=== PATIENT | male | born 1945 | race Caucasian/White ===

== ENCOUNTER 2019-09-21 07:46 | Outpatient (CLI) | payer MEDICARE, SELFPAY ==
--- NOTE | ~2019-09-21 | MR_ITS ---
EXAMINATION: MR MRCP wo/w con/w 3D wo ind DATE: 09/21/2019 09:38 INDICATION: Pancreatic pseudocyst. Patient reportedly with hospitalization for severe pancreatitis in February 2019 with pancreatic necrosis and pseudocyst formation demonstrated on follow-up studies which are not currently available for comparison TECHNIQUE: Magnetic resonance imaging (MRI) of the abdomen was performed without and with intravenous contrast. Sequences included coronal T2-weighted SS-FSE ARC, coronal T2-weighted FS SS-FSE, coronal T2-weighted 2D FS FIESTA, Water:Coronal LAVA-Flex, sagittal T2-weighted SS-FSE ARC, axial SSFSE ARC, axial 3D DualEcho, axial DWI B=600, axial T1-weighted LAVA, FAT:Coronal LAVA-Flex, and coronal in and opposed phase LAVA-Flex. Thick-slab T2-weighted FRFSE-XL images were obtained for magnetic resonance cholangiopancreatography (MRCP). Maximum intensity projection 3-D reconstructions of the volumetric data were created by the technologist. Postcontrast sequences included a time course of axial T1-weig hted LAVA, FAT:Coronal LAVA-Flex, coronal in and opposed phase LAVA-Flex, and Water:Coronal LAVA-Flex . COMPARISON: None. CONTRAST: Multihance, 20 cc FINDINGS: ABDOMEN MRI: The liver, spleen, gallbladder, and adrenal glands are normal. Cysts of the kidneys lydia ure up to 3.3 cm on the right. The pancreas demonstrates a markedly heterogeneous appearance througho ut the head, body, and much of the pancreatic tail. Only the tip of the tail of the pancreas has a no rmal appearance. There is a large, complex fluid collection surrounding the pancreas which is difficu lt to measure but is approximately 16.0 x 8.8 x 8.1 cm in size. The fluid demonstrates some internal loculations without focal enhancement. ABDOMEN MRCP: There is mass effect on the distal common bile duct by walled off necrosis of the pancr eas. The common bile duct measures 8 mm proximal to the area of mass effect and approximately 2 mm in the region abutting the walled off necrosis. The pancreatic duct is only seen in the uncinate proces s of the pancreas and is normal in appearance. The duct in the head, body, and tail of the pancreas i s not identified, likely disrupted. IMPRESSION: 1. 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 Very little residual normal appearing pancreatic tissue i dentified. Reviewed, dictated and finalized at location A. IMPRESSION: 1. 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 Very little r esidual normal appearing pancreatic tissue identified.
[2019-09-21 08:35] LABS: Estimated Glomerular Filt Rate > 60
== END 2019-09-21 07:47 | disposition home or self-care (01) ==
PROVIDERS: PCP Internal Medicine; Visit Provider Internal Medicine Gastroenterology
DX: K86.3 Pseudocyst of pancreas (principal)
CPT/HCPCS: 36415; 74183; 76376

== ENCOUNTER 2019-10-29 10:49 | Outpatient (CLI) | payer MEDICARE, SELFPAY ==
--- NOTE | ~2019-10-29 | CT_ITS ---
EXAMINATION: CT abdomen wo/w con EXAM DATE: 10/29/2019 11:41 INDICATION: Pancreatic pseudocyst. Patient reportedly with hospitalization for severe pancreatitis in February 2019 with pancreatic necrosis and pseudocyst formation demonstrated on follow-u p studies. TECHNIQUE: Spiral CT of the abdomen was performed without and then with intravenous injection of 100 mL Omnipaque 350. Axial, coronal and sagittal images were reviewed. The dose-length product (DLP) for this examination was 3102.98 mGy-cm. The exposure was tailored according to patient size (auto m A exposure control), and iterative reconstruction (ASIR) was used as additional dose reduction techni que. There is no prior study for comparison. FINDINGS: There is heterogeneous complex cystic mass centered in the body of the pancreas, with minim al normal-appearing pancreatic tissue identified, region measuring about 15 x 10 cm in axial dimensio ns. Size and appearance not significantly changed correlating with the prior MRI examination. Radiogr aphically could be pancreatic pseudocyst or large cystic pancreatic neoplasm but reportedly patient h as known diagnosis, sequela from prior bout of severe pancreatitis. Liver, adrenal glands, spleen are unremarkable. Minimally dilated mid abdominal aorta at 2.8 cm. Gall bladder is unremarkable. No biliary obstruction. Portal and splenic veins are patent. Kidneys enha nce symmetrically. There is no hydronephrosis. No nephrolithiasis on the precontrast study. There ar e scattered renal lesions consistent with cysts, largest on the right measuring 2.6 cm. There is no retroperitoneal lymphadenopathy. There is moderate scattered arteriosclerotic disease. The stomach and small bowel are unremarkable. There is moderate descending colonic diverticulosis. T here is no adjacent inflammatory change to suggest diverticulitis. No free intraperitoneal gas. Th e heart is normal in size. There are no pericardial or pleural effusions. The lung bases are unrema rkable. There are no osteoblastic or osteolytic lesions identified. IMPRESSION: 1. Large complex pancreatic cystic mass unchanged, in patient with reportedly known diagnosis of sev ere pancreatitis, pseudocyst. 2. Moderate colonic diverticulosis. Reviewed, dictated and finalized at location A. IMPRESSION: 1. Large complex pancreatic cystic mass unchanged, in patient with reportedly known diagnosis of severe pancreatitis, pseudocyst. 2. Moderate colonic diverticulosis.
[2019-10-29 11:34] LABS: Estimated Glomerular Filt Rate > 60
== END 2019-10-29 10:50 | disposition home or self-care (01) ==
PROVIDERS: PCP Internal Medicine; Visit Provider Internal Medicine Gastroenterology
DX: K86.3 Pseudocyst of pancreas (principal); K86.89 Other specified diseases of pancreas; I87.1 Compression of vein; K57.90 Diverticulosis of intestine, part unspecified, without perforation or abscess without bleeding
CPT/HCPCS: 36415; 74170; Q9967

== ENCOUNTER 2020-11-15 00:29 | Day surgery (SDC) | payer MEDICARE, SELFPAY ==
[2020-11-06 13:42] VITALS: BMI 32.5
[2020-11-15 08:37] VITALS: BP 149/89; PULSE 99; RESP 18; TEMP 36.2; O2SAT 96; BMI 31.4
[2020-11-15] MEDS: LACTATED RINGERS 1,000 ML 150 ML IV CONT (08:43)
[2020-11-15 08:54] LABS: Glucose Point of Care 152 mg/dl (65-105)
--- NOTE | 2020-11-15 09:05 | WPDANESEPPF ---
Anes - Initial Pre Proc Eval Procedure: Operation Date: 11/15/20 09:30 Proposed Procedures p Screening Colonoscopy - Ziggy Logan MD Date/Time: 11/15/20 09:05 Surgeon: Ziggy Logan MD Pre Op Diagnosis: hx of colon polyps Patient Data Age: 75 Gender: M Height: 1.83 m Weight: 105 kg Last Vital Signs Temp 36.2 C L 11/15/20 08:37 Pulse 99 11/15/20 08:37 Resp 18 11/15/20 08:37 BP 149/89 H 11/15/20 08:37 Pulse Ox 96 11/15/20 08:37 Allergies Allergy/AdvReac Type Severity Reaction Status Date / Time No Known Allergies Allergy Mild Verified 11/06/20 13:40 Home Medications Medication Instructions Recorded Confirmed Type aspirin 81 mg tablet,delayed 81 mg PO DAILY 09/14/19 11/06/20 History release rosuvastatin 10 mg tablet 10 mg PO DAILY #90 tablet 09/14/19 11/06/20 Rx sildenafil 100 mg tablet 100 mg PO DAILY PRN #30 tablet 09/14/19 11/06/20 Rx blood sugar diagnostic #100 each 07/03/20 10/12/20 Rx lisinopril 40 mg tablet 40 mg PO DAILY #90 tablet 09/06/20 11/06/20 Rx metformin 500 mg tablet 500 mg PO BID #90 tablet 09/06/20 11/06/20 Rx gemfibrozil 600 mg PO DAILY 11/06/20 11/06/20 History ghpnjnnb-cjz-FE-lycopen-lutein 1 tablet PO DAILY 11/06/20 11/06/20 History [Centrum Silver Men] pantoprazole 40 mg tablet,delayed 40 mg PO QAM #90 tablet 11/08/20 11/15/20 Rx release ferrous fumarate 325 mg (106 mg 325 mg PO BID #180 tablet 11/09/20 11/15/20 Rx iron) tablet metoprolol tartrate 50 mg tablet 50 mg PO BID #180 tablet 11/09/20 11/15/20 Rx Laboratory Tests 11/15/20 08:51 POC Capillary Glucose 152 mg/dl H mg/dl (65-105) Patient hx anesthesia problems: none Family hx anesthesia problems: none PMFSH Past Medical History Medical History CAD (coronary artery disease) Chronic GERD Degenerative arthritis of knee, bilateral H/O acute myocardial infarction H/O myocardial infarction, greater than 8 weeks Hemoglobin A1c less than 7.0% 08/25/20 A1c = 6.9 Mixed hyperlipidemia Type 2 diabetes mellitus without complication, without long-term current use of insulin Family History Family History Mother Family history of diabetes mellitus in first degree relative Sibling Family history of diabetes mellitus in first degree relative Social History Social History Smoking packs per day: 2 Smoking cigarettes per day: 40.0 Years smoked: 30 Smoking pack-years: 60.00 Smoking status: Former smoker Tobacco type: cigarettes Second hand tobacco smoke exposure: No Smoking end date: 03/24/94 Alcohol intake: current Drinks per week: 5 Living arrangements: with family Gender identity (if verbalized by the patient): Male Spiritual care concerns: No Anes - Eval Final PreProcedure Day of Procedure 11/15/20 09:05 Patient weight: obese Heart: regular rate and rhythm Lungs: clear to auscultation Airway: Mallampati scale class II Neurological: alert and oriented Last oral intake: >/= 8 hours ASA classification: III Emergent: no Anesthetic plan: proceed Anesthesia type and monitoring: general GIVS and standard monitoring Informed Consent: The patient's anesthetic plan and its attendant risks and benefits were discussed with the patient/family/POA. Questions were solicited and answers provided to the satisfaction of the patient/family/POA.
--- NOTE | 2020-11-15 09:15 | PM.HPGS ---
History of Present Illness History of Present Illness Consent: Risks, benefits, and alternatives have been discussed and questions answered. Patient agrees to proceed with procedure. Chief complaint: hx of colon polyps Narrative: Lalito Guevara is a 75 year old male Here for colon cancer screening. His last colonoscopy was 10 years ago Review of Systems Review of Systems: All systems reviewed & are unremarkable except as noted in HPI and below PMFSH Past Medical History Medical History CAD (coronary artery disease) Chronic GERD Degenerative arthritis of knee, bilateral H/O acute myocardial infarction H/O myocardial infarction, greater than 8 weeks Hemoglobin A1c less than 7.0% 08/25/20 A1c = 6.9 Mixed hyperlipidemia Type 2 diabetes mellitus without complication, without long-term current use of insulin Family History Family History Mother Family history of diabetes mellitus in first degree relative Sibling Family history of diabetes mellitus in first degree relative Social History Social History Smoking packs per day: 2 Smoking cigarettes per day: 40.0 Years smoked: 30 Smoking pack-years: 60.00 Smoking status: Former smoker Tobacco type: cigarettes Second hand tobacco smoke exposure: No Smoking end date: 03/24/94 Alcohol intake: current Drinks per week: 5 Living arrangements: with family Gender identity (if verbalized by the patient): Male Spiritual care concerns: No Meds Home Medications and Allergies Home Medications Medication Instructions Recorded Confirmed Type aspirin 81 mg tablet,delayed 81 mg PO DAILY 09/14/19 11/06/20 History release rosuvastatin 10 mg tablet 10 mg PO DAILY #90 tablet 09/14/19 11/06/20 Rx sildenafil 100 mg tablet 100 mg PO DAILY PRN #30 tablet 09/14/19 11/06/20 Rx blood sugar diagnostic #100 each 07/03/20 10/12/20 Rx lisinopril 40 mg tablet 40 mg PO DAILY #90 tablet 09/06/20 11/06/20 Rx metformin 500 mg tablet 500 mg PO BID #90 tablet 09/06/20 11/06/20 Rx gemfibrozil 600 mg PO DAILY 11/06/20 11/06/20 History ujyszfsz-goy-HQ-lycopen-lutein 1 tablet PO DAILY 11/06/20 11/06/20 History [Centrum Silver Men] pantoprazole 40 mg tablet,delayed 40 mg PO QAM #90 tablet 11/08/20 11/15/20 Rx release ferrous fumarate 325 mg (106 mg 325 mg PO BID #180 tablet 11/09/20 11/15/20 Rx iron) tablet metoprolol tartrate 50 mg tablet 50 mg PO BID #180 tablet 11/09/20 11/15/20 Rx Allergies Allergy/AdvReac Type Severity Reaction Status Date / Time No Known Allergies Allergy Mild Verified 11/06/20 13:40 Vital Signs Vital Signs - 24 hr 11/15/20 08:37 Temperature 36.2 C L Pulse Rate 99 Respiratory Rate 18 Blood Pressure 149/89 H Pulse Oximetry 96 Exam Resp: Auscultation: clear to auscultation bilaterally Cardio: Rate: regular rate Rhythm: regular rhythm GI: GI Palp: Yes Soft to palpation and No Tenderness to palpation present (GI) Assessment and Plan Assessment and plan (1) Colon cancer screening: Code(s): Z12.11 - Encounter for screening for malignant neoplasm of colon Status: Acute Assessment and Plan: Colonoscopy with possible biopsy or polypectomy or cautery or injection of substances.
[2020-11-15 09:46] VITALS: BP 104/58; PULSE 76; RESP 22; O2SAT 96
[2020-11-15 09:56] VITALS: BP 100/65; PULSE 71; RESP 20; O2SAT 97
[2020-11-15 10:06] VITALS: BP 113/59; PULSE 72; RESP 18; O2SAT 95
== END 2020-11-15 10:14 | disposition home or self-care (01) ==
PROVIDERS: PCP Internal Medicine; Visit Provider Internal Medicine Gastroenterology
PROC: 0DJD8ZZ Inspection of Lower Intestinal Tract, Via Natural or Artificial Opening Endoscopic (ICD-10-PCS; CPT 45378; principal; 2020-11-15 09:30)
DX: Z12.11 Encounter for screening for malignant neoplasm of colon (principal); Z86.010 Personal history of colon polyps; K57.30 Diverticulosis of large intestine without perforation or abscess without bleeding; I25.10 Atherosclerotic heart disease of native coronary artery without angina pectoris; K21.9 Gastro-esophageal reflux disease without esophagitis; I25.2 Old myocardial infarction; E78.2 Mixed hyperlipidemia; E11.9 Type 2 diabetes mellitus without complications; Z87.891 Personal history of nicotine dependence; Z79.82 Long term (current) use of aspirin; E66.9 Obesity, unspecified; Z68.31 Body mass index [BMI] 31.0-31.9, adult
CPT/HCPCS: G0105; 82948; J2704; J7120

== ENCOUNTER → 2022-08-05 10:19 | Outpatient (CLI) | payer OTHER, SELFPAY ==
--- NOTE | ~2022-08-05 | XR_ITS ---
Lumbosacral Spine: AP, oblique, and lateral views Clinical History: Pain Findings: The normal lordotic curve is maintained. No fracture or sublocation seen. There is mild to moderate degenerative disc narrowing at L5-S1. There is advanced facet arthropathy at L5-S1. There is mild facet arthropathy at remaining lumbar spine. There are large left lateral osteophytes at L1-L2 and L2-L3. The sacroiliac joints are normally outlined. Impression: Mild degenerative spondylosis overall, as detailed above. Reviewed, dictated and finalized at location M. Impression: Mild degenerative spondylosis overall, as detailed above.
--- NOTE | ~2022-08-05 | XR_ITS ---
Thoracic spine: Clinical Indication: Back pain AP and lateral views were performed. No fracture is seen. There is normal alignment of the vertebrae. The intervertebral disc spaces appe ar normal. Paravertebral soft tissues appear normal. Impression: No significant abnormalities noted. Reviewed, dictated and finalized at [facility]. Impression: No significant abnormalities noted.
== END ==
PROVIDERS: PCP Nurse Practitioner Family; Visit Provider Nurse Practitioner Family
DX: M54.50 Low back pain, unspecified (principal); M47.896 Other spondylosis, lumbar region
CPT/HCPCS: 72072; 72110

== ENCOUNTER 2023-02-05 19:21 | Emergency (ER) | payer MEDICARE, SELFPAY ==
--- NOTE | ~2023-02-05 | XR_ITS ---
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 RESULT: Lines, tubes, and devices: None. Lungs and pleura: Clear. Cardiomediastinal silhouette: 4.9 cm left hilar mass. Other: No acute osseous or upper abdominal finding. IMPRESSION: 4.9 cm left hilar mass. Recommend CT of the chest with contrast for further evaluation. Reviewed, dictated and finalized at location K. I OPERATION FORMING MACHINE SETTER IMPRESSION: 4.9 cm left hilar mass. Recommend CT of the chest with contrast for further emelina luation.
--- NOTE | ~2023-02-05 | CT_ITS ---
EXAMINATION: CT abdomen pelvis w con DATE: 02/05/2023 20:43 INDICATION: sepsis, recent dx of pancreatitis TECHNIQUE: Computed tomography (CT) of the abdomen and pelvis was performed with 100 mL Omnipaque-350 intravenous contrast. Automated exposure control and iterative reconstruction technique were employe d. The dose-length product was 857.09 mGy-cm. COMPARISON: CT abdomen 10/29/2019. FINDINGS: Lower thorax: Left hilar/infrahilar mass with adjacent lymphadenopathy. Trace left pleural fluid. Cor onary artery calcifications Liver: Normal. Biliary/Gallbladder: Gallbladder is normal. No bile duct dilation. Pancreas: Little normal pancreatic parenchyma present. 5.1 x 11.7 cm fluid and gas collection in the expected location of the pancreas, with mild stranding and inflammatory change, and with drain and dr ainage tubes connecting this lesion with the stomach. There is narrowing of the confluence of the por natali vein and splenic vein which both remain patent. Varices noted at the nani hepatis. Spleen: Wedge-shaped hypodensities in the spleen. Adrenals:Indeterminate density right adrenal mass. Kidneys: Multiple bilateral renal cysts. Multiple bilateral hypodensities that are too small to scott cterize GI tract: No small or large bowel dilation. Normal appendix. Mesentery/Peritoneum: No peritoneal lymphadenopathy. Retroperitoneum: No mass. Atherosclerotic abdominal aortic and/or arterial calcifications. Pelvis: Urinary bladder is decompressed. Prostatomegaly. Soft Tissues: Soft tissues and body wall unremarkable. Bones: Ivory vertebral body at L2. IMPRESSION: Left hilar/infrahilar mass, concerning for neoplastic disease. Indeterminate right adrenal mass, medi astinal and retroperitoneal lymphadenopathy, and IV vertebral body at L2 concerning for metastatic di sease. Persistent walled off pancreatic necrosis with drains to the stomach and the suggestion of mild surro unding inflammatory change that may represent acute on chronic pancreatitis. Moderate sized splenic infarcts. Reviewed, dictated and finalized at location K. 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 Indeterminate ri ght adrenal mass, mediastinal and retroperitoneal lymphadenopathy, and IV verte bral body at L2 concerning for metastatic disease. Persistent walled off pancreatic necrosis with drains to the stomach and the duffy ggestion of mild surrounding inflammatory change that may represent acute on ch ronic pancreatitis. Moderate sized splenic infarcts.
[2023-02-05 19:21] VITALS: BP 68/49; PULSE 120; RESP 24; TEMP 37.1; O2SAT 100
--- NOTE | 2023-02-05 19:30 | ECG_ITS ---
Measurements Intervals [place] Rate: 120 P: 42 AK: 137 QRS: 26 QRSD: 82 T: 65 QT: 330 QTc: 466 Interpretive Statements SINUS TACHYCARDIA VENTRICULAR COUPLET AND VENTRICULAR TRIGEMINY MINIMAL Q WAVES- INFERIOR LEADS BASELINE ARTIFACT- V1 ABNORMAL ECG NO PREVIOUS ECG AVAILABLE FOR COMPARISON Electronically Signed On 02-06-2023 13:15:44 EXHIBITS CURATOR by Naman Sylvester D.O.
[2023-02-05] MEDS: SODIUM CHLORIDE 0.9% IV 1,000 ML 999 ML IV CONT ×2 (19:45→20:26)
[2023-02-05 19:46] VITALS: BP 88/52; PULSE 107; PULSE 109; RESP 21; O2SAT 98
[2023-02-05 19:58] LABS: Basophils Absolute Auto 0.1 K/mm3 (0.0-0.1); Basophils Percent Auto 0.4 % (0.2-1.2); Eosinophils Absolute Auto 0.1 K/mm3 (0-0.3); Eosinophils Percent Auto 0.6 % (0-4.4); Hematocrit 29.7 % (42.0-52.0); Hemoglobin 8.9 g/dL (14.0-18.0); Immature Granulocyte Absolute 0.38 K/mm3 (0.00-0.031); Immature Granulocyte Percent A 1.9 % (0-0.5); Mean Corpuscular Hemoglobin 27.9 pg (26-34); Mean Corpuscular Volume 93.1 fl (80-100); Mean Platelet Volume 11.3 fl (7.4-10.4); Monocytes Absolute Auto 1.2 K/mm3 (0.1-0.6); Monocytes Percent Auto 6.1 % (2.6-8.5); Neutrophils Absolute Auto 16.5 K/mm3 (1.3-6.7); Platelet Count Result 569 k/mm3 (150-375); Red Blood Count 3.19 M/mm3 (4.6-6.20); Red Cell Distribution Width 15.3 % (11.5-14.5); White Blood Count 19.9 K/mm3 (4.5-10.0)
[2023-02-05 20:08] LABS: Alanine Aminotransferase 15 U/L (6-50); Albumin Level 3.1 g/dL (3.5-5.1); Alkaline Phosphatase 77 U/L (38-126); Anion Gap 14 mmol/L (8-16); Aspartate Amino Transferase 33 U/L (17-59); Bilirubin,Total 0.6 mg/dL (0.2-1.3); Blood Urea Nitrogen 13 mg/dL (9-20); Calcium 8.8 mg/dL (8.4-10.2); Carbon Dioxide 18 mmol/L (22-30); Chloride 101 mmol/L (98-107); Estimated CRCL calculation 71 ml/min; Estimated Glomerular Filt Rate > 60; Glucose 272 mg/dL (65-110); Potassium 4.4 mmol/L (3.4-5.0); Sodium 133 mmol/L (137-145)
[2023-02-05 20:11] LABS: INR 1.2; Prothrombin Time 15.4 Seconds (11.1-14.7)
[2023-02-05 20:12] LABS: Partial Thromboplastin Time 36.6 SECONDS (22.3-36.8)
[2023-02-05 20:15] LABS: Lactic Acid Reflex 4.3 mmol/L (0.7-2.0)
[2023-02-05 20:35] LABS: Troponin I < 0.012 ng/mL (0.000-0.034)
[2023-02-05 21:26] LABS: Influenza A QL RT-PCR Negative (Negative); Influenza B QL RT-PCR Negative (Negative); SARS-CoV-2 RNA PCR Negative (Negative)
[2023-02-05 21:33] VITALS: BP 100/60; PULSE 105; RESP 22; O2SAT 96
--- NOTE | 2023-02-05 22:00 | ED.GENADULT ---
HPI - General Adult General Chief complaint: Unspecified Stated complaint: WKNS, SYNCOPE Time Seen by Provider: 02/05/23 19:39 History of Present Illness HPI narrative: Patient is 77-year-old male who presents to the emergency department in this afternoon status post a fall at home. Family members were concerned that he syncopized, however, patient states that he just felt weak and fell, denies any loss of consciousness no syncopal episodes. Patient was noted to be hypotensive upon arrival with a blood pressure of 60/49 mmHg and heart rate of 120. and son are present at bedside and informed me that on January 24 the patient was admitted to [facility] due to acute pancreatitis where he had a stent placed in his pancreas, however, patient returned to [facility] with the following January 27 and it was noted then that his stent was clotted and patient had some bleeding. Patient had his stent replaced and was treated for sepsis at that and discharged home with an appointment to have his stent removed on February 07 in 2 days. Patient is currently denying any symptoms including chest pain, shortness of breath, nausea, vomiting, abdominal pain, dysuria, hematuria, constipation, diarrhea, melena, hematochezia, fevers or chills. He also denies any headaches, dizziness, lightheadedness, blurry visions, focal weakness, numbness and or tingling. There are no other modifying, alleviating, or precipitating factors at this time. Related Data Home Medications Medication Instructions Recorded Confirmed aspirin 81 mg tablet,delayed 81 mg PO DAILY 09/14/19 09/30/22 release (Adult Aspirin Regimen) tpaohbil-ko-edoel 300 mcg-K 60 1 tablet PO DAILY 11/06/20 09/30/22 mcg-lycop 600 mcg-lutein 300 mcg tablet (Centrum Silver Men) Allergies Allergy/AdvReac Type Severity Reaction Status Date / Time No Known Allergies Allergy Mild Verified 02/05/23 19:37 Review of Systems Review of Systems: All systems are reviewed and are negative unless stated otherwise in the HPI. [facility] Past Medical History Medical History CAD (coronary artery disease) Chronic GERD Degenerative arthritis of knee, bilateral H/O acute myocardial infarction H/O myocardial infarction, greater than 8 weeks Hemoglobin A1c less than 7.0% 08/25/20 A1c = 6.9 Mixed hyperlipidemia Type 2 diabetes mellitus without complication, without long-term current use of insulin Family History Family History Mother Family history of diabetes mellitus in first degree relative Sibling Family history of diabetes mellitus in first degree relative Social History Social History Smoking packs per day: 2 Smoking cigarettes per day: 40.0 Years smoked: 30 Smoking pack-years: 60.00 Smoking status: Former smoker Tobacco type: cigarettes Second hand tobacco smoke exposure: No Smoking end date: 03/24/94 Alcohol intake: current Drinks per week: 7 Substance use: never Substance use type: does not use Lack of Transportation: No Lack of Food: Never True Current Housing: I Have Housing Concerned About Future Housing: No Difficulty Paying Gas/Electric Bills: No Difficulty Paying for Meds: No Currently Unemployed: No Education: Trade/Vocational Certificate Difficulty w/ Childcare or Family Care: No Living arrangements: with family Occupation/Education: retired Gender identity (if verbalized by the patient): Male Spiritual care concerns: No Exam Narrative: General: Alert, awake, afebrile, in no acute distress. HEENT: PERRL, no rhinorrhea, no post nasal drip, oropharynx clear. Neck: Trachea midline, no JVD, no lymphadenopathy. Cardiovascular: Tachycardic with regular rhythm, no murmurs, rubs or gallops, no peripheral edema. Respiratory: Clear to auscultation bilateral
[2023-02-05 22:52] LABS: Reflex Lactic Acid Yes or No Add Lactic
--- NOTE | 2023-02-05 23:21 | PC.NURSE ---
Spoke with Liza from [facility] [place]. Gave her the most recent of vitals and she stated pt is still awaiting a bed. She will call back once he is assigned to one.
[2023-02-05 23:23] VITALS: BP 84/58; PULSE 104; RESP 19; O2SAT 98
[2023-02-05] MEDS: PIPERACILLIN/TAZ 4.5G/NS 100ML 4.5 GM/100 ML BAG IVPB (23:27)
[2023-02-05] MEDS: SODIUM CHLORIDE 0.9% IV 1,000 ML 125 ML IV CONT (23:27)
[2023-02-05] MEDS: FINASTERIDE 5 MG TABLET PO (23:28)
[2023-02-06 01:12] VITALS: BP 86/62; PULSE 104; RESP 20; O2SAT 95
[2023-02-06 01:27] LABS: Lactic Acid Reflex 0.9 mmol/L (0.7-2.0)
[2023-02-06 01:43] LABS: Appearance Urine Cloudy (Clear); Bacteria Urine None Seen /hpf; Bilirubin Urine Negative (Negative); Blood Urine Trace (Negative); Color Urine Yellow (Yellow); Glucose Urine UA Trace mg/dL (Negative); Granular Casts Urine Present /lpf; Hyaline Casts Urine Present /lpf; Ketones Urine Trace mg/dL (Negative); Leukocyte Esterase Ur Negative LEU/UL (Negative); Nitrate Urine Negative (Negative); Protein Urine 3+ mg/dL (Negative); RBC Urine 0-2 /hpf (0-2); Squamous Epithelial Cell Urine Few /hpf (Few); Urobilinogen Urine 0.2 mg/dL (<2.0); WBC Urine 0-5 /hpf; pH Urine 7.5 (5.0-9.0)
[2023-02-06 01:44] LABS: Specific Grav Ur 1.041 (1.001-1.035)
[2023-02-06 01:45] LABS: Add Urine Microscopic? YES
[2023-02-06 03:00] VITALS: BP 107/62; PULSE 109; RESP 19; O2SAT 98
--- NOTE | 2023-02-06 03:29 | PC.NURSE ---
Spoke with Liza ([facility]) to give her an updated set of vitals. She stated the pt is still awaiting an assigned bed in the ICU due to recent blood pressures.
--- NOTE | 2023-02-06 03:48 | PC.NURSE ---
Spoke with Liza regarding pt room status. Pt assigned to room 2945J. Facility needs copy of chart & disc. Accepting physician - Dr. Hernandez. Nurse report [phone]
[2023-02-06 04:30] VITALS: BP 102/61; PULSE 111; RESP 16; TEMP 36.7; O2SAT 99
== END 2023-02-06 04:55 | disposition short-term general hospital (02) ==
PROVIDERS: Emergency Provider Emergency Medicine; PCP Nurse Practitioner
DX: A41.9 Sepsis, unspecified organism (principal); Z87.19 Personal history of other diseases of the digestive system; R00.0 Tachycardia, unspecified; I25.10 Atherosclerotic heart disease of native coronary artery without angina pectoris; K21.9 Gastro-esophageal reflux disease without esophagitis; I25.2 Old myocardial infarction; E11.9 Type 2 diabetes mellitus without complications; E78.5 Hyperlipidemia, unspecified
CPT/HCPCS: 36415; 71045; 74177; 80053; 81001; 83605; 84484; 85025; 85610; 85730; 86140; 86850; 86900; 86901; 87040; 87636; 93005; 96361; 96365; 99285; A9270; J2543; J7030; Q9967

== ENCOUNTER 2023-03-28 12:17 | Inpatient (IN) | payer MEDICARE, SELFPAY ==
[2023-03-28] VITALS (11 sets, daily range): BP systolic 88–108; BP diastolic 55–75; PULSE 95–115; RESP 16–22; TEMP 36.7–37.2; O2SAT 97–99; BMI 21.9
--- NOTE | ~2023-03-28 | XR_ITS ---
XR chest 2V DATE: 03/28/2023 15:14 INDICATION: Cough. History of lung cancer, chemotherapy. TECHNIQUE: AP and lateral views COMPARISON: 02/05/2023 portable AP chest FINDINGS: Again noted is a large soft tissue mass density overlying the left hilum, likely situated w ithin the superior segment of the left lower lobe, likely corresponding to the history of lung cancer . There is left lower lobe infiltrate and/or atelectasis, and lesser infiltrate or atelectasis in the r ight lower lung as well. No pleural effusion or pulmonary vascular congestion or pneumothorax is detected. Heart size appears within normal limits. Is aortic arch calcification. Osteopenia. Prominent glenohumeral osteoarthritis is noted on the included left shoulder. Postoperative change in catheter overlies the left upper quadrant of the abdomen. IMPRESSION: Probable left lower lobe malignancy Bilateral lower lobe infiltrate and/atelectasis, left greater than right Reviewed, dictated and finalized at location B. TATION SUPERINTENDENT
[2023-03-28] MEDS: ALBUTEROL SULFATE NEB 2.5 MG/3 ML INH INHALATION (14:36)
[2023-03-28] MEDS: IPRATROPIUM BR 0.02% INH SOLN 0.5 MG/2.5 ML VIAL INHALATION (14:36)
[2023-03-28] MEDS: SODIUM CHLORIDE 0.9% IV 1,000 ML 999 ML IV CONT ×2 (14:47→17:06)
[2023-03-28 14:50] LABS: Hemoglobin 7.3 g/dL (14.0-18.0); Immature Platelet Fraction Pct 6.1 % (0.9-11.2); Mean Corpuscular HGB Conc 30.4 g/dl (32-36); Mean Corpuscular Hemoglobin 28.1 pg (26-34); Mean Corpuscular Volume 92.3 fl (80-100); Platelet Count Result 62 k/mm3 (150-375); Red Cell Distribution Width 19.3 % (11.5-14.5)
[2023-03-28 14:58] LABS: Lactic Acid Reflex 2.9 mmol/L (0.7-2.0)
[2023-03-28 14:58] LABS: INR 1.1; Partial Thromboplastin Time 33.8 SECONDS (22.3-36.8); Prothrombin Time 14.8 Seconds (11.1-14.7)
[2023-03-28 15:12] LABS: Alanine Aminotransferase 20 U/L (6-50); Albumin Level 3.3 g/dL (3.5-5.1); Alkaline Phosphatase 113 U/L (38-126); Anion Gap 7 mmol/L (8-16); Aspartate Amino Transferase 27 U/L (17-59); Bilirubin,Total 0.7 mg/dL (0.2-1.3); Blood Urea Nitrogen 32 mg/dL (9-20); CRP 23.6 mg/dL (<1.0); Carbon Dioxide 26 mmol/L (22-30); Chloride 102 mmol/L (98-107); Estimated CRCL calculation 87 ml/min; Estimated Glomerular Filt Rate > 60; Glucose 186 mg/dL (65-110); Potassium 3.7 mmol/L (3.4-5.0); Sodium 135 mmol/L (137-145)
[2023-03-28 15:24] LABS: Lymphocytes Absolute Manual 0.32 K/mm3 (1.1-4.5); Lymphocytes Percent Manual 16 % (18-44); Monocytes Absolute Manual 0.12 K/mm3 (0.1-0.90); Monocytes Percent Manual 6 % (3-9); Neutrophils Percent Manual 78 % (46-73); Platelet Estimate Decreased (Adequate); Total Cells Counted 100
[2023-03-28 15:25] LABS: Anisocytosis 1+ (NORMAL); Influenza A QL RT-PCR Negative (Negative); Influenza B QL RT-PCR Negative (Negative); Ovalocytes 1+ (NORMAL); RSV RNA, RT-PCR Negative (Negative); SARS-CoV-2 RNA PCR Negative (Negative); Schistocytes None Seen (NORMAL)
[2023-03-28 15:45] LABS: Appearance Urine Cloudy (Clear); Bacteria Urine None Seen /hpf; Bilirubin Urine 1+ (Negative); Blood Urine Negative (Negative); Color Urine Dark Yellow (Yellow); Glucose Urine UA Negative (Negative); Ketones Urine Trace mg/dL (Negative); Leukocyte Esterase Ur Trace LEU/UL (Negative); Need Manual Microscopic Reviewed; Nitrate Urine Negative (Negative); Protein Urine 1+ mg/dL (Negative); Specific Grav Ur 1.024 (1.001-1.035); Squamous Epithelial Cell Urine Occasional /hpf (Few); WBC Urine 0-5 /hpf; pH Urine 5.5 (5.0-9.0)
[2023-03-28 15:53] LABS: Add Urine Microscopic? YES
--- NOTE | 2023-03-28 16:32 | ED.FEVER ---
HPI - Fever General Chief Complaint: Fever Stated Complaint: fever Time Seen by Provider: 03/28/23 13:53 History of Present Illness HPI Narrative: Patient is a 77-year-old male with history of left-sided lung cancer with metastases to the left occipital lobe and adrenal glands who presents to the ER with fever. Occurring over last 24 hours. Associated with cough for the last 2 days. He has some increased weakness. He was receiving chemotherapy at [facility] [place] [facility]. He has had 2 doses with the last treatment 8 days ago. Related Data Home Medications Medication Instructions Recorded Confirmed aspirin 81 mg tablet,delayed 81 mg PO DAILY 09/14/19 09/30/22 release (Adult Aspirin Regimen) dgpwzhjp-[id number] 300 mcg-K 60 1 tablet PO DAILY 11/06/20 09/30/22 mcg-lycop 600 mcg-lutein 300 mcg tablet (Centrum Silver Men) Allergies Allergy/AdvReac Type Severity Reaction Status Date / Time No Known Allergies Allergy Mild Verified 03/28/23 13:57 Review of Systems Review of Systems: All systems reviewed & are unremarkable except as noted in HPI and below Constitutional: Constitutional: Denies chills, Reports fatigue and Reports fever(s) ENT: Reports system reviewed and no additional complaints, except as documented Cardiovascular: Cardiovascular: Reports no additional cardiovascular complaints Respiratory: Respiratory: Reports cough, Reports dyspnea and Denies wheezing Gastrointestinal: Gastrointestinal: Reports no additional gastrointestinal complaints Musculoskeletal: Musculoskeletal: Reports no additional musculoskeletal complaints Integumentary/Breasts: Skin/Breast: Reports system reviewed and no additional complaints, except as docu [facility] Past Medical History Medical History CAD (coronary artery disease) Chronic GERD Degenerative arthritis of knee, bilateral H/O acute myocardial infarction H/O myocardial infarction, greater than 8 weeks Hemoglobin A1c less than 7.0% 08/25/20 A1c = 6.9 Mixed hyperlipidemia Type 2 diabetes mellitus without complication, without long-term current use of insulin Family History Family History Mother Family history of diabetes mellitus in first degree relative Sibling Family history of diabetes mellitus in first degree relative Social History Social History Smoking packs per day: 2 Smoking cigarettes per day: 40.0 Years smoked: 30 Smoking pack-years: 60.00 Smoking status: Former smoker Tobacco type: cigarettes Second hand tobacco smoke exposure: No Smoking end date: 03/24/94 Alcohol intake: current Drinks per week: 7 Substance use: never Substance use type: does not use Lack of Transportation: No Lack of Food: Never True Current Housing: I Have Housing Concerned About Future Housing: No Difficulty Paying Gas/Electric Bills: No Difficulty Paying for Meds: No Currently Unemployed: No Education: Trade/Vocational Certificate Difficulty w/ Childcare or Family Care: No Living arrangements: with family Occupation/Education: retired Gender identity (if verbalized by the patient): Male Spiritual care concerns: No Exam Narrative: GENERAL: Well-appearing, well-nourished, and in no acute distress. HEAD: Normocephalic, atraumatic. EYES: PERRL and EOMI. ENT: Mucous membranes moist. NECK: Supple. CHEST: Clear to auscultation. No respiratory distress. HEART: Regular rate and rhythm. No murmur heard. Normal peripheral pulses. ABDOMEN: Soft, nontender, nondistended, normal active bowel sounds. EXTREMITIES: Normal range of motion. No edema. SKIN: Warm, dry, no rash. NEURO: No focal deficits. Alert and oriented x3. PSYCH: Normal mood and affect. Course ELASTIC ATTACHER OVERLOCK/PA Physician Supervision patient resting comfortably. Pain is fluid responsive to 2 L IV fl
--- NOTE | 2023-03-28 16:37 | PC.NURSE ---
multiple attempts for IV access and blood cultures by multiple RN's without success.
[2023-03-28] MEDS: AZITHROMYCIN 500 MG/NS 250 ML 500 MG/250 ML BAG 250 MG IVPB (17:27)
[2023-03-28 17:44] LABS: Reflex Lactic Acid Yes or No Add Lactic
[2023-03-28] MEDS: SODIUM CHLORIDE 0.9% IV 1,000 ML 125 ML IV CONT (18:55)
[2023-03-28 19:19] LABS: Lactic Acid 1.1 mmol/L (0.7-2.0)
--- NOTE | 2023-03-28 19:44 | ADMGEN ---
This patient, Lalito Guevara, was admitted to IMU Room 213-01. @1940 Patient/family oriented to hospital policies and general routines including ID bracelet, bed and alarms, visiting hours, pain management, procedures, bathroom and other care routines, personal items, smoking policy, room service/diet, and visiting hours. Information on how to activate the Rapid Response Team has been discussed. Patient/Family are encouraged to report perceived risks to care and to ask questions if they do not understand what they are told or what they should do.
--- NOTE | 2023-03-28 22:10 | PM.IMHP ---
H&P: HPI History of Present Illness Date/Time: 03/28/23 22:10 Chief Complaint: Fever and cough Narrative: 69-year-old male with a past medical history of chronic pancreatitis, and recently diagnosed non-small cell lung cancer who presented to the ER with fevers and cough. Patient reports he has only received 2 chemotherapy treatments but shortly after his most recent chemotherapy treatment he developed a fever. His fever was just over 101 and was associated with rigors. He denied any recent ill contacts. He has had increasing cough productive of some sputum but he does not know the colored sputum. He denies any chest pain but has had some increased shortness of breath. He does not have an oxygen requirement. He denies any nausea or vomiting. He has had persistently decreased appetite over the last several months associated with his cancer. He denies any dysphasia. He does have metastatic cancer with a left occipital lobe lesion. He has been having some lightheadedness with standing but denies any overt vertigo. He denies any significant headache. The patient is receiving chemotherapy with carboplatin,pemetrexed started 02/27/2023 and pembrolizumab added 03/20/2023. Patient has been having persistent weight loss since starting on chemotherapy. He reports no significant appetite. He has been having loose stools but denies any overt diarrhea. He does report dark stools chronically due to iron supplementation. He does have BPH but denies sensation of incomplete bladder emptying or dysuria. On arrival to the ER patient was initially hypotensive and received 2 L fluid bolus with resolution of his hypotension. He still feels rather fatigued. His labs demonstrated pancytopenia. His x-ray demonstrated left lower lobe malignancy and bilateral lower lobe infiltrate/atelectasis left greater than right. He was started on Rocephin and azithromycin coverage for neutropenia fever. Blood cultures were obtained and are pending. The patient was adamant that he would not want transferred to [facility] where he receives his cancer care. Review of Systems Review of Systems: 12 systems were reviewed with pertinent positives and negatives per HPI. Except as documented in the HPI, all other systems were reviewed and are negative. 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, mediastinum, and left occipital lobe Type 2 diabetes mellitus without complication, without long-term current use of insulin Surgical History Surgical History (Updated 03/29/23 @ 08:14 by Christine Zarate DO) 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 Status post cataract extraction of both eyes with insertion of intraocular lens Family History Family History Mother Family history of diabetes mellitus in first degree relative Sibling Family history of diabetes mellitus in first degree relative Social History Social History (Updated 03/29/23 @ 08:16 by Christine Zarate DO) Social History: The patient lives with his of 57 years. They raised 2 sons. 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 He quit smoking tobacco over 25 years ago. Prior to quitting he smoked up to 3 packs cigarettes per day. He drinks alcohol 2 to 3 times a week. Code status: Full code Surrogate decision maker: Smoking packs per day: 1 Smoking cigarettes per day: 20.0 Years smoked: 30 Smoking pack-years: 30.00 Smoking status: Former smoker Tobacco type: cigarettes Second hand tobacco smoke exposure: No Smok
[2023-03-28] MEDS: MIRTAZAPINE 15 MG TABLET PO (22:56)
[2023-03-29] VITALS (28 sets, daily range): BP systolic 96–124; BP diastolic 49–70; PULSE 91–107; RESP 14–24; TEMP 36.7–37.7; O2SAT 95–100
[2023-03-29] MEDS: ACETAMINOPHEN 325 MG TABLET 650 MG PO (00:53)
[2023-03-29] MEDS: SODIUM CHLORIDE 0.9% IV 1,000 ML 125 ML IV CONT (04:19)
[2023-03-29 05:32] LABS: Anion Gap 6 mmol/L (8-16); Blood Urea Nitrogen 19 mg/dL (9-20); Calcium 7.9 mg/dL (8.4-10.2); Carbon Dioxide 25 mmol/L (22-30); Chloride 106 mmol/L (98-107); Estimated CRCL calculation 103 ml/min; Estimated Glomerular Filt Rate > 60; Glucose 124 mg/dL (65-110); Potassium 3.4 mmol/L (3.4-5.0); Sodium 137 mmol/L (137-145)
[2023-03-29 06:07] LABS: Glucose Point of Care 128 mg/dl (65-105)
[2023-03-29 06:52] LABS: Basophils Percent Auto 1.2 % (0.2-1.2); Immature Granulocyte Absolute 0.07 K/mm3 (0.00-0.031); Immature Granulocyte Percent A 8.3 % (0-0.5); Immature Platelet Fraction Pct 5.5 % (0.9-11.2); Lymphocytes Absolute Auto 0.22 K/mm3 (0.9-3.2); Lymphocytes Percent Auto 26.2 % (18.3-44.2); Mean Corpuscular HGB Conc 29.4 g/dl (32-36); Mean Corpuscular Hemoglobin 27.5 pg (26-34); Mean Corpuscular Volume 93.7 fl (80-100); Mean Platelet Volume 10.7 fl (7.4-10.4); Monocytes Absolute Auto 0.1 K/mm3 (0.1-0.6); Monocytes Percent Auto 9.5 % (2.6-8.5); Neutrophils Absolute Auto 0.5 K/mm3 (1.3-6.7); Neutrophils Percent Auto 54.8 % (45.5-73.1); Platelet Count Result 35 k/mm3 (150-375); Red Blood Count 2.07 M/mm3 (4.6-6.20); Red Cell Distribution Width 19.3 % (11.5-14.5)
[2023-03-29 07:01] LABS: Hematocrit 19.4 % (42.0-52.0); Hemoglobin 5.7 g/dL (14.0-18.0); White Blood Count 0.8 K/mm3 (4.5-10.0)
[2023-03-29 07:39] LABS: Hypochromasia 1+ (NORMAL); Platelet Estimate Decreased (Adequate)
[2023-03-29 07:40] LABS: Anisocytosis 1+ (NORMAL); Microcytosis 1+ (NORMAL); Schistocytes None Seen (NORMAL)
[2023-03-29 08:26] LABS: Glucose Point of Care 140 mg/dl (65-105)
[2023-03-29] MEDS: OPTI-GEN TAB 1 TABLET PO (09:09)
[2023-03-29] MEDS: SODIUM CHLORIDE 0.9% IV 250 ML 30 ML IV CONT (09:09)
[2023-03-29] MEDS: FINASTERIDE 5 MG TABLET PO (09:09)
[2023-03-29] MEDS: PANTOPRAZOLE 40 MG TABLET PO (09:10)
[2023-03-29] MEDS: TUBING, BLOOD PLUM PUMP TUBING 1 EACH XX ×2 (09:39→12:15)
[2023-03-29 11:53] LABS: Glucose Point of Care 139 mg/dl (65-105)
[2023-03-29] MEDS: AZITHROMYCIN 500 MG/NS 250 ML 500 MG/250 ML BAG 250 MG IVPB (16:03)
[2023-03-29 16:21] LABS: Glucose Point of Care 179 mg/dl (65-105)
--- NOTE | 2023-03-29 19:02 | PM.IMPN ---
Progress Note: A&P Assessment and Plan (1) Pneumonia: Qualifiers: Laterality: bilateral Lung location: lower lobe of lung Pneumonia type: due to unspecified organism Qualified Code(s): J18.9 - Pneumonia, unspecified organism Code(s): J18.9 - Pneumonia, unspecified organism Status: Acute Assessment and Plan: Patient presents with fever. CXR showing bilateral lower lobe infiltrates L>R. He does have slight cough. WBC was 2000 (ANC 1560) but WBC now 800 (ANC 438) Dysuria but UA not consistent with UTI. BCx NGTD Rocephin and Azithromycin started. Will change to Cefepime for broader gram negative coverage Consider adding Vanco. Check MRSA nasal swab Neutropenic precautions. (2) Hypotension arterial: Qualifiers: Hypotension type: hypotension due to hypovolemia Qualified Code(s): E86.1 - Hypovolemia Code(s): I95.9 - Hypotension, unspecified Status: Acute Assessment and Plan: Patient was HoTN on presentation with BP 88/61. BP responded to 2L IV fluids. Related to sepsis? or dehydration? BP stable now. Metoprolol on hold. Hold Flomax if recurrent HoTN. Follow (3) Neutropenia with fever: Code(s): D70.9 - Neutropenia, unspecified; R50.81 - Fever presenting with conditions classified elsewhere Status: Acute Assessment and Plan: As above (4) Non-small cell carcinoma of lung: Qualifiers: Laterality: unspecified laterality Qualified Code(s): C34.90 - Malignant neoplasm of unspecified part of unspecified bronchus or lung Code(s): C34.90 - Malignant neoplasm of unspecified part of unspecified bronchus or lung Status: Acute Assessment and Plan: Patient with left hilar lung cancer with occipital mets. Currently being treated at [facility]. Recent treatment about 10 days ago with Carboplatin, Keytruda and Alimta. No Heme/Onc available this weekend. Left message with [facility] on-call. (5) Pancytopenia due to chemotherapy: Code(s): D61.810 - Antineoplastic chemotherapy induced pancytopenia Status: Acute Assessment and Plan: Patient with pancytopenia related to chemo. Monitor closely until they reach their ruddy. Hgb down to 5.7 and 2U PRBC ordered. Plt 35K. Follow closely and transfuse as needed. (6) Type 2 diabetes mellitus without complication, without long-term current use of insulin: Code(s): E11.9 - Type 2 diabetes mellitus without complications Status: Acute Assessment and Plan: The patient's blood glucose was reviewed on 03/29 Glucose remains well controlled. Continue AccuCheks covering with sliding scale. Hypoglycemia protocol available as needed. Hold metformin (7) BPH (benign prostatic hyperplasia): Qualifiers: Lower urinary tract symptom detail: nocturia Lower urinary tract symptom presence: symptoms present Qualified Code(s): N40.1 - Benign prostatic hyperplasia with lower urinary tract symptoms; R35.1 - Nocturia Code(s): N40.0 - Benign prostatic hyperplasia without lower urinary tract symptoms Status: Acute Assessment and Plan: Stable. Continue Flomax and finasteride. Plan Code status -full DVT prophylax -SCDs Subjective Date/time seen: 03/29/23 19:02 Interval history: 77yo male with lung cancer with mets to brain, DM and CAD here for fever. No problems overnight. No CP, abdominal pain or back pain. Mild dysuria. No SOB but with slight cough. No n/v but with decreased appetite. He is on high calories Boost and family to bring in for him. Last chemo was 10 days ago with Carboplatin, Keytruda and Alimta. Exam Narrative: AF 98.4 108/64 103 20 98% ra Gen - NARD Chest - R>L basilar crackles, nml RR CV - RRR S1/S2. Tele showing PVCs Abd - Soft, NT/ND, Positive BS Ext - No pedal edema Psych - Nml mood and affect Skin - Warm and dry Objective Data Vital Signs Vital Signs: Vit
[2023-03-29 19:50] LABS: Hematocrit 24.7 % (42.0-52.0); Hemoglobin 7.7 g/dL (14.0-18.0); Immature Granulocyte Absolute 0.05 K/mm3 (0.00-0.031); Immature Platelet Fraction Pct 4.9 % (0.9-11.2); Lymphocytes Absolute Auto 0.22 K/mm3 (0.9-3.2); Lymphocytes Percent Auto 26.2 % (18.3-44.2); Mean Corpuscular HGB Conc 31.2 g/dl (32-36); Mean Corpuscular Hemoglobin 28.3 pg (26-34); Mean Corpuscular Volume 90.8 fl (80-100); Mean Platelet Volume 12.2 fl (7.4-10.4); Monocytes Absolute Auto 0.1 K/mm3 (0.1-0.6); Monocytes Percent Auto 9.5 % (2.6-8.5); Neutrophils Absolute Auto 0.5 K/mm3 (1.3-6.7); Neutrophils Percent Auto 58.3 % (45.5-73.1); Platelet Count Result 29 k/mm3 (150-375); Red Blood Count 2.72 M/mm3 (4.6-6.20); Red Cell Distribution Width 17.5 % (11.5-14.5)
[2023-03-29 20:13] LABS: Anisocytosis 1+ (NORMAL); Platelet Estimate Decreased (Adequate); Schistocytes None Seen (NORMAL)
[2023-03-29 20:14] LABS: Hypochromasia 1+ (NORMAL)
[2023-03-29 20:27] LABS: Glucose Point of Care 187 mg/dl (65-105)
[2023-03-29] MEDS: CEFEPIME 2 GM/NS 50 ML 2 GM/50 ML BAG IVPB (20:36)
[2023-03-29] MEDS: MIRTAZAPINE 15 MG TABLET PO (20:38)
[2023-03-29] MEDS: TAMSULOSIN HCL 0.4 MG CAPSULE PO (20:38)
[2023-03-29 20:58] LABS: White Blood Count 0.8 K/mm3 (4.5-10.0)
--- NOTE | 2023-03-29 21:00 | PC.NURSE ---
nurse obtain lab results hgb 7.7 and wbc 0/8 called Jayde BUSINESS CONTINUITY STRATEGY DIRECTOR no new order given at this time.
[2023-03-29] MEDS: FILGRASTIM-SNDZ 480 MCG/0.8 ML SYRINGE SUB-Q (21:54)
[2023-03-30] VITALS (23 sets, daily range): BP systolic 97–124; BP diastolic 47–68; PULSE 68–120; RESP 14–30; TEMP 36.6–37.7; O2SAT 91–100
[2023-03-30] MEDS: CEFEPIME 2 GM/NS 50 ML 2 GM/50 ML BAG IVPB ×3 (04:44→21:45)
[2023-03-30 05:06] LABS: Hematocrit 23.9 % (42.0-52.0); Hemoglobin 7.5 g/dL (14.0-18.0); Immature Granulocyte Absolute 0.09 K/mm3 (0.00-0.031); Immature Granulocyte Percent A 10.2 % (0-0.5); Lymphocytes Absolute Auto 0.19 K/mm3 (0.9-3.2); Lymphocytes Percent Auto 21.6 % (18.3-44.2); Mean Corpuscular HGB Conc 31.4 g/dl (32-36); Mean Corpuscular Hemoglobin 27.9 pg (26-34); Mean Corpuscular Volume 88.8 fl (80-100); Monocytes Absolute Auto 0.1 K/mm3 (0.1-0.6); Monocytes Percent Auto 12.5 % (2.6-8.5); Neutrophils Absolute Auto 0.5 K/mm3 (1.3-6.7); Neutrophils Percent Auto 55.7 % (45.5-73.1); Red Blood Count 2.69 M/mm3 (4.6-6.20); Red Cell Distribution Width 17.7 % (11.5-14.5)
[2023-03-30 05:18] LABS: Alanine Aminotransferase 13 U/L (6-50); Albumin Level 2.7 g/dL (3.5-5.1); Alkaline Phosphatase 100 U/L (38-126); Anion Gap 6 mmol/L (8-16); Aspartate Amino Transferase 20 U/L (17-59); Bilirubin,Total 0.7 mg/dL (0.2-1.3); Blood Urea Nitrogen 13 mg/dL (9-20); Carbon Dioxide 25 mmol/L (22-30); Chloride 105 mmol/L (98-107); Estimated CRCL calculation 105 ml/min; Estimated Glomerular Filt Rate > 60; Glucose 149 mg/dL (65-110); Potassium 3.1 mmol/L (3.4-5.0); Sodium 136 mmol/L (137-145)
[2023-03-30 05:29] LABS: White Blood Count 0.9 K/mm3 (4.5-10.0)
[2023-03-30 05:30] LABS: Platelet Count Result 21 k/mm3 (150-375)
[2023-03-30 05:31] LABS: Platelet Estimate Decreased (Adequate)
[2023-03-30 05:32] LABS: Schistocytes None Seen (NORMAL)
[2023-03-30 05:34] LABS: Anisocytosis 1+ (NORMAL)
[2023-03-30 08:07] LABS: Glucose Point of Care 150 mg/dl (65-105)
[2023-03-30] MEDS: OPTI-GEN TAB 1 TABLET PO (10:10)
[2023-03-30] MEDS: PANTOPRAZOLE 40 MG TABLET PO (10:11)
[2023-03-30] MEDS: FINASTERIDE 5 MG TABLET PO (10:11)
[2023-03-30 11:48] LABS: Glucose Point of Care 166 mg/dl (65-105)
--- NOTE | 2023-03-30 12:35 | PM.IMPN ---
Progress Note: A&P Assessment and Plan (1) Pneumonia: Qualifiers: Laterality: bilateral Lung location: lower lobe of lung Pneumonia type: due to unspecified organism Qualified Code(s): J18.9 - Pneumonia, unspecified organism Code(s): J18.9 - Pneumonia, unspecified organism Status: Acute Assessment and Plan: Patient presents with low grade fever. CXR showing bilateral lower lobe infiltrates L>R. He does have slight cough. WBC was 2000 (ANC 1560)-> 800 (ANC 438)-> 900(ANC 501) Dysuria but UA not consistent with UTI. BCx NGTD MRSA nasal swab pending Rocephin started but changed to Cefepime for broader gram negative coverage Azithromycin started and continued Consider adding Vanco. Continue Neutropenic precautions. (2) Hypotension arterial: Qualifiers: Hypotension type: hypotension due to hypovolemia Qualified Code(s): E86.1 - Hypovolemia Code(s): I95.9 - Hypotension, unspecified Status: Acute Assessment and Plan: Patient was HoTN on presentation with BP 88/61. BP responded to 2L IV fluids. Related to sepsis? or dehydration? BP stable now. Metoprolol on hold. Hold Flomax if recurrent HoTN. Follow (3) Neutropenia with fever: Code(s): D70.9 - Neutropenia, unspecified; R50.81 - Fever presenting with conditions classified elsewhere Status: Acute Assessment and Plan: As above (4) Non-small cell carcinoma of lung: Qualifiers: Laterality: unspecified laterality Qualified Code(s): C34.90 - Malignant neoplasm of unspecified part of unspecified bronchus or lung Code(s): C34.90 - Malignant neoplasm of unspecified part of unspecified bronchus or lung Status: Acute Assessment and Plan: Patient with left hilar lung cancer with occipital mets. Currently being treated at [facility]. Recent treatment with Carboplatin, Keytruda and Alimta. No Heme/Onc available this weekend. Discussed case with Heme/Onc on-call At [facility] (5) Pancytopenia due to chemotherapy: Code(s): D61.810 - Antineoplastic chemotherapy induced pancytopenia Status: Acute Assessment and Plan: Patient with pancytopenia related to chemo. Monitor closely until he reaches his ruddy. WBC as above. Neupogen started per recommendations from Heme/Onc. Hgb was down to 5.7 on 03/29 and was transfused 2U PRBC Plt was 62K but has trended down to 21K. Transfuse plt. Follow closely and transfuse as needed. (6) Type 2 diabetes mellitus without complication, without long-term current use of insulin: Code(s): E11.9 - Type 2 diabetes mellitus without complications Status: Acute Assessment and Plan: The patient's blood glucose was reviewed on 03/30 Glucose remains well controlled. Continue AccuCheks covering with sliding scale. Hypoglycemia protocol available as needed. Holding metformin (7) BPH (benign prostatic hyperplasia): Qualifiers: Lower urinary tract symptom presence: symptoms present Lower urinary tract symptom detail: nocturia Qualified Code(s): N40.1 - Benign prostatic hyperplasia with lower urinary tract symptoms; R35.1 - Nocturia Code(s): N40.0 - Benign prostatic hyperplasia without lower urinary tract symptoms Status: Acute Assessment and Plan: Stable. Continue Flomax and finasteride. Plan Code status -full DVT prophylax -SCDs Subjective Date/time seen: 03/30/23 12:35 Interval history: 77yo male with lung cancer with mets to brain, DM and CAD here for fever. Feels well. Up walking to the bathroom. He is taking the concentrated Boost but nor eating much otherwise. Hemoptysis x1. No epistaxis. Exam Narrative: AF 98.2 106/58 120 24 97% ra Gen - NARD sitting up in the rocky Chest - few scattered rhonchi CV - irregular and tachycardic. Tele showing frequent PACs and PVCs Abd - Soft, NT/ND, Positive BS Ext - No pedal edema Psych - N
[2023-03-30] MEDS: AZITHROMYCIN 500 MG/NS 250 ML 500 MG/250 ML BAG 250 MG IVPB (12:41)
[2023-03-30] MEDS: POTASSIUM CHLORIDE 20 MEQ ER TABLET 40 MEQ PO (13:12)
[2023-03-30 16:01] LABS: Glucose Point of Care 209 mg/dl (65-105)
[2023-03-30 16:51] LABS: Glucose Point of Care 213 mg/dl (65-105)
[2023-03-30] MEDS: INSULIN ASPART (*BKC) 100 UNITS/ML SUB-Q (17:26)
[2023-03-30] MEDS: TUBING, BLOOD PLUM PUMP TUBING 1 EACH XX (18:30)
[2023-03-30] MEDS: SODIUM CHLORIDE 0.9% IV 250 ML 30 ML IV CONT (18:31)
[2023-03-30] MEDS: MIRTAZAPINE 15 MG TABLET PO (20:11)
[2023-03-30] MEDS: FILGRASTIM-SNDZ 480 MCG/0.8 ML SYRINGE SUB-Q (20:11)
[2023-03-30] MEDS: TAMSULOSIN HCL 0.4 MG CAPSULE PO (20:11)
[2023-03-30 22:49] LABS: Glucose Point of Care 178 mg/dl (65-105)
[2023-03-31] VITALS (14 sets, daily range): BP systolic 102–115; BP diastolic 51–62; PULSE 10–110; RESP 12–18; TEMP 36.4–37.6; O2SAT 93–99
[2023-03-31] MEDS: CEFEPIME 2 GM/NS 50 ML 2 GM/50 ML BAG IVPB ×3 (04:33→21:29)
[2023-03-31 05:26] LABS: Basophils Percent Auto 1.1 % (0.2-1.2); Hematocrit 23.6 % (42.0-52.0); Hemoglobin 7.2 g/dL (14.0-18.0); Immature Granulocyte Absolute 0.09 K/mm3 (0.00-0.031); Immature Granulocyte Percent A 9.9 % (0-0.5); Immature Platelet Fraction Pct 3.6 % (0.9-11.2); Lymphocytes Absolute Auto 0.22 K/mm3 (0.9-3.2); Lymphocytes Percent Auto 24.2 % (18.3-44.2); Mean Corpuscular HGB Conc 30.5 g/dl (32-36); Mean Corpuscular Hemoglobin 28.2 pg (26-34); Mean Corpuscular Volume 92.5 fl (80-100); Mean Platelet Volume 11.9 fl (7.4-10.4); Monocytes Absolute Auto 0.1 K/mm3 (0.1-0.6); Neutrophils Absolute Auto 0.5 K/mm3 (1.3-6.7); Neutrophils Percent Auto 53.8 % (45.5-73.1); Platelet Count Result 26 k/mm3 (150-375); Red Blood Count 2.55 M/mm3 (4.6-6.20); Red Cell Distribution Width 17.7 % (11.5-14.5)
[2023-03-31 05:31] LABS: White Blood Count 0.9 K/mm3 (4.5-10.0)
[2023-03-31 05:39] LABS: Albumin Level 2.7 g/dL (3.5-5.1); Anion Gap 4 mmol/L (8-16); Blood Urea Nitrogen 15 mg/dL (9-20); Calcium 8.1 mg/dL (8.4-10.2); Carbon Dioxide 24 mmol/L (22-30); Chloride 106 mmol/L (98-107); Estimated CRCL calculation 130 ml/min; Estimated Glomerular Filt Rate > 60; Glucose 147 mg/dL (65-110); Magnesium 1.2 mg/dL (1.6-2.3); Phosphorus 1.9 mg/dL (2.5-4.5); Potassium 3.4 mmol/L (3.4-5.0); Sodium 134 mmol/L (137-145)
[2023-03-31 05:58] LABS: Platelet Estimate Decreased (Adequate); Schistocytes Rare (NORMAL)
[2023-03-31 05:59] LABS: Anisocytosis 1+ (NORMAL)
[2023-03-31] MEDS: AZITHROMYCIN 250 MG TABLET PO (08:52)
[2023-03-31] MEDS: POTASSIUM PHOS/SODIUM PHOS 250 MG TABLET PO (08:52)
[2023-03-31] MEDS: MAGNESIUM SULF 2 GM/WATER 50ML 2 GM/50 ML BAG IVPB (08:52)
[2023-03-31] MEDS: PANTOPRAZOLE 40 MG TABLET PO (08:53)
[2023-03-31] MEDS: FINASTERIDE 5 MG TABLET PO (08:53)
[2023-03-31] MEDS: OPTI-GEN TAB 1 TABLET PO (08:53)
--- NOTE | 2023-03-31 09:51 | PDONCCN ---
HPI - Date of Consult Date/Time: 03/31/23 17:40 <Luis Marti - 03/31/23 17:41> 03/31/23 09:51 <Jonelle Ricketts - 03/31/23 10:54> Requesting Physician: Vera Perrin MD <Luis Marti - 03/31/23 17:41> Vera Perrin MD <Jonelle Ricketts - 03/31/23 10:54> Primary Care Provider: Jordan Baugh APRN <Luis Marti - 03/31/23 17:41> Jordan Baugh APRN <Jonelle Ricketts - 03/31/23 10:54> - Consult Narrative Reason for consult: NSCLC <Jonelle Ricketts - 03/31/23 10:54> Narrative: Lalito Guevara is a 77 year old male <Luis Marti - 03/31/23 17:41> Lalito Guevara is a 77 year old male with a past medical history of HTN, DM, HLD, BPH, pancreatitis, and NSCLC with occipital brain mets. He was diagnosed a few months ago and is being followed at [facility] [place] by Dr. Daugherty. He has received two cycles of Carbo, Alimta, and Keytruda, last cycle 1/2. He is a previous smoker of 3packs/day 25 yrs ago. He presented to the hospital for fever, chills, and cough. His highest fever was 101.5. He denies any sick contacts, but says his had COVID around [place] time. He denies diarrhea. He endorses some dark stools due to iron supplementation. He is taking iron 2x a day at home. He has been anemic prior to chemotherapy starting. He endorses weight loss and no appetite. His recent CXR shows LL malignancy, atelectasis, and bilateral infiltrates. He is on Rocephin and Azithromycin for coverage. His blood cultures are pending. He has started Filgrastim for GF support per Iris senior receptionist. 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, mediastinum, and left occipital lobe Type 2 diabetes mellitus without complication, without long-term current use of insulin <Luis Marti - 03/31/23 17:41> Medical History (Last Updated 03/29/23 @ 08:15 by Christine Zarate DO) CAD (coronary artery disease) Chronic GERD Degenerative arthritis of knee, bilateral H/O acute myocardial infarction H/O myocardial infarction, greater than 8 weeks Hemoglobin A1c less than 7.0% 08/25/20 A1c = 6.9 Mixed hyperlipidemia 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, mediastinum, and left occipital lobe Type 2 diabetes mellitus without complication, without long-term current use of insulin <Jonelle Ricketts - 03/31/23 10:54> Surgical History: Surgical History (Last Updated 03/29/23 @ 08:14 by Christine Zarate DO) 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 Status post cataract extraction of both eyes with insertion of intraocular lens <Luis Marti - 03/31/23 17:41> Surgical History (Last Updated 03/29/23 @ 08:14 by Christine Zarate DO) 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 Status post cataract extraction of both eyes with insertion of intraocular lens <Jonelle Ricketts - 03/31/23 10:54> Family History: Family History (Last Reviewed 03/29/23 @ 08:15 by Christine Zarate DO) Mother Family history of diabetes mellitus in first degree relative Sibling Family history of diabetes mellitus in first degree relative <Luis Marti - 03/31/23 17:41> Family History (Last Reviewed 03/29/23 @ 08:15 by Christine Zarate DO) Mother Family history of diabetes mellitus in first degree relative Sibling Fami
[2023-03-31 11:48] LABS: Glucose Point of Care 164 mg/dl (65-105)
[2023-03-31 11:48] LABS: Glucose Point of Care 168 mg/dl (65-105)
[2023-03-31 16:29] LABS: Glucose Point of Care 195 mg/dl (65-105)
--- NOTE | 2023-03-31 17:39 | PM.IMPN ---
Progress Note: A&P Assessment and Plan (1) Pneumonia: Qualifiers: Laterality: bilateral Lung location: lower lobe of lung Pneumonia type: due to unspecified organism Qualified Code(s): J18.9 - Pneumonia, unspecified organism Code(s): J18.9 - Pneumonia, unspecified organism Status: Acute Assessment and Plan: Patient presents with low grade fever. CXR showing bilateral lower lobe infiltrates L>R. He does have slight cough. WBC was 2000 (ANC 1560)-> 800 (ANC 438)-> 900(ANC 501)-> 900(ANC 484) Dysuria but UA not consistent with UTI. BCx NGTD MRSA nasal swab pending Rocephin started but changed to Cefepime for broader gram negative coverage Azithromycin started and continued Consider adding Vanco but remains afebrile and relatively asymptomatic at this time. Continue Neutropenic precautions. (2) Pancytopenia due to chemotherapy: Code(s): D61.810 - Antineoplastic chemotherapy induced pancytopenia Status: Acute Assessment and Plan: Patient with pancytopenia related to chemo. Monitor closely until he reaches his ruddy. WBC as above. Filgrastim started per recommendations from [facility]. Hgb was down to 5.7 on 03/29 and was transfused 2U PRBC. Hgb low but stable in the 7 range Plt was 62K but has trended down to 21K and patient transfused. Plt count better at 26K. Follow closely and transfuse as needed. (3) Hypotension arterial: Qualifiers: Hypotension type: hypotension due to hypovolemia Qualified Code(s): E86.1 - Hypovolemia Code(s): I95.9 - Hypotension, unspecified Status: Acute Assessment and Plan: Patient was HoTN on presentation with BP 88/61. BP responded to 2L IV fluids. Related to sepsis? or dehydration? BP stable now. Metoprolol on hold. Hold Flomax if recurrent HoTN. Follow (4) Neutropenia with fever: Code(s): D70.9 - Neutropenia, unspecified; R50.81 - Fever presenting with conditions classified elsewhere Status: Acute Assessment and Plan: Neutropenia related to chemotherapy. Filgrastim added. As above (5) Non-small cell carcinoma of lung: Code(s): C34.90 - Malignant neoplasm of unspecified part of unspecified bronchus or lung Status: Acute Assessment and Plan: Patient with left hilar lung cancer with occipital mets. Currently being treated at [facility]. Recent treatment with Carboplatin, Keytruda and Alimta. No Heme/Onc available over the weekend. Discussed case with Heme/Onc on-call At [place] As above (6) Type 2 diabetes mellitus without complication, without long-term current use of insulin: Code(s): E11.9 - Type 2 diabetes mellitus without complications Status: Acute Assessment and Plan: The patient's blood glucose was reviewed on 03/31 Glucose remains well controlled. Continue AccuCheks covering with sliding scale. Hypoglycemia protocol available as needed. Holding metformin Change to regular diet (7) BPH (benign prostatic hyperplasia): Qualifiers: Lower urinary tract symptom presence: symptoms present Lower urinary tract symptom detail: nocturia Qualified Code(s): N40.1 - Benign prostatic hyperplasia with lower urinary tract symptoms; R35.1 - Nocturia Code(s): N40.0 - Benign prostatic hyperplasia without lower urinary tract symptoms Status: Acute Assessment and Plan: Stable. Continue Flomax and finasteride. (8) Electrolyte abnormality: Code(s): E87.8 - Other disorders of electrolyte and fluid balance, not elsewhere classified Status: Acute Assessment and Plan: Potassium, phos and Mag all low. May be the cause of the brief NSVT. Will replace Monitor on tele. Follow electrolytes and replace as needed. Plan Code status -full DVT prophylax -SCDs Subjective Date/time seen: 03/31/23 17:39 Interval history: 77yo male with lung cancer with mets to brain, DM and
[2023-03-31] MEDS: FILGRASTIM-SNDZ 480 MCG/0.8 ML SYRINGE SUB-Q (21:28)
[2023-03-31] MEDS: TAMSULOSIN HCL 0.4 MG CAPSULE PO (21:28)
[2023-03-31 21:29] LABS: Glucose Point of Care 187 mg/dl (65-105)
[2023-03-31] MEDS: MIRTAZAPINE 15 MG TABLET PO (21:29)
[2023-04-01] VITALS (9 sets, daily range): BP systolic 109–123; BP diastolic 55–71; PULSE 94–106; RESP 16–18; TEMP 36.6–37.1; O2SAT 93–97
[2023-04-01] MEDS: CEFEPIME 2 GM/NS 50 ML 2 GM/50 ML BAG IVPB ×3 (03:45→21:12)
[2023-04-01 05:35] LABS: Basophils Percent Auto 1.7 % (0.2-1.2); Eosinophils Percent Auto 0.8 % (0-4.4); Hematocrit 25.6 % (42.0-52.0); Hemoglobin 7.6 g/dL (14.0-18.0); Immature Granulocyte Absolute 0.15 K/mm3 (0.00-0.031); Immature Granulocyte Percent A 12.7 % (0-0.5); Immature Platelet Fraction Pct 5.9 % (0.9-11.2); Lymphocytes Absolute Auto 0.19 K/mm3 (0.9-3.2); Lymphocytes Percent Auto 16.1 % (18.3-44.2); Mean Corpuscular HGB Conc 29.7 g/dl (32-36); Mean Corpuscular Hemoglobin 27.6 pg (26-34); Mean Corpuscular Volume 93.1 fl (80-100); Mean Platelet Volume 11.5 fl (7.4-10.4); Monocytes Absolute Auto 0.2 K/mm3 (0.1-0.6); Monocytes Percent Auto 13.6 % (2.6-8.5); Neutrophils Absolute Auto 0.7 K/mm3 (1.3-6.7); Neutrophils Percent Auto 55.1 % (45.5-73.1); Nucleated Red Blood Cells Absolute Auto 0.1 K/mm3 (0.0-0.012); Nucleated Red Blood Cells Perc 5.9 % (0.0-0.2); Red Blood Count 2.75 M/mm3 (4.6-6.20)
[2023-04-01 05:42] LABS: Albumin Level 2.7 g/dL (3.5-5.1); Anion Gap 5 mmol/L (8-16); Blood Urea Nitrogen 14 mg/dL (9-20); Calcium 8.1 mg/dL (8.4-10.2); Carbon Dioxide 27 mmol/L (22-30); Chloride 104 mmol/L (98-107); Estimated CRCL calculation 129 ml/min; Estimated Glomerular Filt Rate > 60; Glucose 147 mg/dL (65-110); Magnesium 1.4 mg/dL (1.6-2.3); Phosphorus 1.4 mg/dL (2.5-4.5); Potassium 3.4 mmol/L (3.4-5.0); Sodium 136 mmol/L (137-145)
[2023-04-01 06:01] LABS: Platelet Count Result 25 k/mm3 (150-375)
[2023-04-01 06:03] LABS: White Blood Count 1.2 K/mm3 (4.5-10.0)
[2023-04-01 06:06] LABS: Anisocytosis 1+ (NORMAL); Platelet Estimate Decreased (Adequate); Schistocytes None Seen (NORMAL)
[2023-04-01 07:52] LABS: Glucose Point of Care 172 mg/dl (65-105)
[2023-04-01] MEDS: FINASTERIDE 5 MG TABLET PO (08:25)
[2023-04-01] MEDS: OPTI-GEN TAB 1 TABLET PO (08:25)
[2023-04-01] MEDS: PANTOPRAZOLE 40 MG TABLET PO (08:26)
[2023-04-01] MEDS: AZITHROMYCIN 250 MG TABLET PO (08:26)
--- NOTE | 2023-04-01 08:28 | PC.NURSE ---
This RN spoke with Tiana Rosales RN regarding Cefepime infusion that wasn't documented. RN stated I gave the medication. I must have forgotten to scan it, or it didn't save. This RN manually entered the infusion of the medication.
[2023-04-01] MEDS: POTASSIUM CHLORIDE 20 MEQ ER TABLET 40 MEQ PO (09:58)
[2023-04-01] MEDS: POTASSIUM PHOS/SODIUM PHOS 250 MG TABLET PO (09:58)
[2023-04-01] MEDS: MAGNESIUM SULF 2 GM/WATER 50ML 2 GM/50 ML BAG IVPB ×2 (10:01→16:59)
[2023-04-01 11:25] LABS: Glucose Point of Care 158 mg/dl (65-105)
--- NOTE | 2023-04-01 14:22 | PM.IMPN ---
Progress Note: A&P Assessment and Plan (1) Pneumonia: Qualifiers: Laterality: bilateral Lung location: lower lobe of lung Pneumonia type: due to unspecified organism Qualified Code(s): J18.9 - Pneumonia, unspecified organism Code(s): J18.9 - Pneumonia, unspecified organism Status: Acute Assessment and Plan: Patient presents with low grade fever. CXR showing bilateral lower lobe infiltrates L>R. He does have slight cough. WBC was 2000 (ANC 1560)-> 800 (ANC 438)-> 900(ANC 501)-> 900(ANC 484)-> 1200(ANC 660) Dysuria but UA not consistent with UTI. BCx NGTD MRSA nasal swab negative Rocephin started but changed to Cefepime for broader gram negative coverage Completed Azithromycin ANC improving finally. Continue Neutropenic precautions. Possibly home tomorrow if ANC better. (2) Pancytopenia due to chemotherapy: Code(s): D61.810 - Antineoplastic chemotherapy induced pancytopenia Status: Acute Assessment and Plan: Patient with pancytopenia related to chemo. Monitor closely until he reaches his ruddy. WBC as above. Filgrastim started per recommendations from [facility]. Hgb was down to 5.7 on 03/29 and was transfused 2U PRBC. Hgb low but stable in the 7 range Plt was 62K but has trended down to 21K and patient transfused. Plt count better at 25K and stable. Follow closely and transfuse as needed. (3) Hypotension arterial: Qualifiers: Hypotension type: hypotension due to hypovolemia Qualified Code(s): E86.1 - Hypovolemia Code(s): I95.9 - Hypotension, unspecified Status: Acute Assessment and Plan: Patient was HoTN on presentation with BP 88/61. BP responded to 2L IV fluids. Related to sepsis? or dehydration? BP stable now. Metoprolol on hold. Hold Flomax if recurrent HoTN. Follow (4) Neutropenia with fever: Code(s): D70.9 - Neutropenia, unspecified; R50.81 - Fever presenting with conditions classified elsewhere Status: Acute Assessment and Plan: Neutropenia related to chemotherapy. Filgrastim added. As above (5) Non-small cell carcinoma of lung: Code(s): C34.90 - Malignant neoplasm of unspecified part of unspecified bronchus or lung Status: Acute Assessment and Plan: Patient with left hilar lung cancer with occipital mets. Currently being treated at [facility]. Recent treatment with Carboplatin, Keytruda and Alimta. No Heme/Onc available over the weekend. Discussed case with Heme/Onc on-call at [place] As above (6) Type 2 diabetes mellitus without complication, without long-term current use of insulin: Code(s): E11.9 - Type 2 diabetes mellitus without complications Status: Acute Assessment and Plan: The patient's blood glucose was reviewed on 04/01 Glucose remains well controlled. Continue AccuCheks covering with sliding scale. Hypoglycemia protocol available as needed. Holding metformin Changed to regular diet (7) BPH (benign prostatic hyperplasia): Qualifiers: Lower urinary tract symptom presence: symptoms present Lower urinary tract symptom detail: nocturia Qualified Code(s): N40.1 - Benign prostatic hyperplasia with lower urinary tract symptoms; R35.1 - Nocturia Code(s): N40.0 - Benign prostatic hyperplasia without lower urinary tract symptoms Status: Acute Assessment and Plan: Stable. Continue Flomax and finasteride. (8) Electrolyte abnormality: Code(s): E87.8 - Other disorders of electrolyte and fluid balance, not elsewhere classified Status: Acute Assessment and Plan: Potassium, phos and Mag all low again. Will replace Monitor on tele. Follow electrolytes and replace as needed. Plan Code status -full DVT prophylax -SCDs Subjective Date/time seen: 04/01/23 14:22 Interval history: 77yo male with lung cancer with mets to brain, DM and CAD here for fever. Feels better tod
[2023-04-01 15:08] LABS: Immature Platelet Fraction Pct 9.2 % (0.9-11.2); Mean Platelet Volume 12.5 fl (7.4-10.4)
[2023-04-01 15:16] LABS: Magnesium 1.7 mg/dL (1.6-2.3); Potassium 3.5 mmol/L (3.4-5.0)
[2023-04-01 15:38] LABS: Platelet Count Result 24 k/mm3 (150-375)
[2023-04-01] MEDS: POTASSIUM/PHOSPHORUS/SODIUM 1.5 GM PACKET 1 PACKET PO (16:59)
[2023-04-01] MEDS: POTASSIUM CHLORIDE 20 MEQ PACKET (FOR LIQUID) PO (17:02)
[2023-04-01 20:11] LABS: Glucose Point of Care 231 mg/dl (65-105)
[2023-04-01] MEDS: TAMSULOSIN HCL 0.4 MG CAPSULE PO (21:12)
[2023-04-01] MEDS: FILGRASTIM-SNDZ 480 MCG/0.8 ML SYRINGE SUB-Q (21:13)
[2023-04-01] MEDS: MIRTAZAPINE 15 MG TABLET PO (21:13)
[2023-04-02] VITALS (8 sets, daily range): BP systolic 105–113; BP diastolic 57–61; PULSE 95–124; RESP 18–20; TEMP 36.5–36.6; O2SAT 92–94
[2023-04-02] MEDS: POTASSIUM/PHOSPHORUS/SODIUM 1.5 GM PACKET 1 PACKET PO (00:50)
[2023-04-02] MEDS: CEFEPIME 2 GM/NS 50 ML 2 GM/50 ML BAG IVPB ×2 (04:45→12:15)
[2023-04-02 05:18] LABS: Hematocrit 25.6 % (42.0-52.0); Hemoglobin 7.6 g/dL (14.0-18.0); Immature Platelet Fraction Pct 12.1 % (0.9-11.2); Mean Corpuscular HGB Conc 29.7 g/dl (32-36); Mean Corpuscular Hemoglobin 27.8 pg (26-34); Mean Corpuscular Volume 93.8 fl (80-100); Mean Platelet Volume 11.6 fl (7.4-10.4); Platelet Count Result 26 k/mm3 (150-375); Red Blood Count 2.73 M/mm3 (4.6-6.20); Red Cell Distribution Width 18.4 % (11.5-14.5); White Blood Count 3.6 K/mm3 (4.5-10.0)
[2023-04-02 05:25] LABS: Albumin Level 2.8 g/dL (3.5-5.1); Anion Gap 5 mmol/L (8-16); Blood Urea Nitrogen 13 mg/dL (9-20); Carbon Dioxide 25 mmol/L (22-30); Chloride 105 mmol/L (98-107); Estimated CRCL calculation 129 ml/min; Estimated Glomerular Filt Rate > 60; Glucose 142 mg/dL (65-110); Magnesium 1.8 mg/dL (1.6-2.3); Phosphorus 1.1 mg/dL (2.5-4.5); Potassium 3.8 mmol/L (3.4-5.0); Sodium 135 mmol/L (137-145)
[2023-04-02 05:45] LABS: Band Neutrophils Percent 16 % (0-6); Basophils Absolute Manual 0.03 K/mm3 (0.0-0.1); Basophils Percent Manual 1 % (0-1); Lymphocytes Absolute Manual 0.39 K/mm3 (1.1-4.5); Lymphocytes Percent Manual 11 % (18-44); Metamyelocytes Percent 3 %; Monocytes Absolute Manual 0.57 K/mm3 (0.1-0.90); Monocytes Percent Manual 16 % (3-9); Myelocytes Percent 1 %; Neutrophils Absolute Manual 2.44 K/mm3 (1.3-6.7); Neutrophils Percent Manual 52 % (46-73); Platelet Estimate Decreased (Adequate); Total Cells Counted 100
[2023-04-02 05:46] LABS: Schistocytes None Seen (NORMAL)
[2023-04-02 07:38] LABS: Glucose Point of Care 143 mg/dl (65-105)
[2023-04-02] MEDS: OPTI-GEN TAB 1 TABLET PO (08:46)
[2023-04-02] MEDS: PANTOPRAZOLE 40 MG TABLET PO (08:46)
[2023-04-02] MEDS: FINASTERIDE 5 MG TABLET PO (08:46)
[2023-04-02 12:19] LABS: Glucose Point of Care 187 mg/dl (65-105)
--- NOTE | 2023-04-02 12:38 | PM.DS ---
DS: Admitting Diagnosis Discharge Date 04/02/23 Admitting Diagnosis Fever DS: Discharge Diagnosis Discharge Diagnosis (1) Pneumonia: Qualifiers: Laterality: bilateral Lung location: lower lobe of lung Pneumonia type: due to unspecified organism Qualified Code(s): J18.9 - Pneumonia, unspecified organism Code(s): J18.9 - Pneumonia, unspecified organism Status: Acute Assessment and Plan: Patient presents with low grade fever. CXR showing bilateral lower lobe infiltrates L>R. He does have slight cough. WBC was 2000 (ANC 1560)-> 800 (ANC 438)-> 900(ANC 501)-> 900(ANC 484)-> 1200(ANC 660) Dysuria but UA not consistent with UTI. BCx NGTD MRSA nasal swab negative Rocephin started but changed to Cefepime for broader gram negative coverage Completed Azithromycin ANC improving finally. Continue Neutropenic precautions. Possibly home tomorrow if ANC better. (2) Pancytopenia due to chemotherapy: Code(s): D61.810 - Antineoplastic chemotherapy induced pancytopenia Status: Acute Assessment and Plan: Patient with pancytopenia related to chemo. Monitor closely until he reaches his ruddy. WBC as above. Filgrastim started per recommendations from [facility]. Hgb was down to 5.7 on 03/29 and was transfused 2U PRBC. Hgb low but stable in the 7 range Plt was 62K but has trended down to 21K and patient transfused. Plt count better at 25K and stable. Follow closely and transfuse as needed. (3) Hypotension arterial: Qualifiers: Hypotension type: hypotension due to hypovolemia Qualified Code(s): E86.1 - Hypovolemia Code(s): I95.9 - Hypotension, unspecified Status: Acute Assessment and Plan: Patient was HoTN on presentation with BP 88/61. BP responded to 2L IV fluids. Related to sepsis? or dehydration? BP stable now. Metoprolol on hold. Hold Flomax if recurrent HoTN. Follow (4) Neutropenia with fever: Code(s): D70.9 - Neutropenia, unspecified; R50.81 - Fever presenting with conditions classified elsewhere Status: Acute Assessment and Plan: Neutropenia related to chemotherapy. Filgrastim added. As above (5) Non-small cell carcinoma of lung: Code(s): C34.90 - Malignant neoplasm of unspecified part of unspecified bronchus or lung Status: Acute Assessment and Plan: Patient with left hilar lung cancer with occipital mets. Currently being treated at [facility]. Recent treatment with Carboplatin, Keytruda and Alimta. No Heme/Onc available over the weekend. Discussed case with Heme/Onc on-call at [place] As above (6) Type 2 diabetes mellitus without complication, without long-term current use of insulin: Code(s): E11.9 - Type 2 diabetes mellitus without complications Status: Acute Assessment and Plan: The patient's blood glucose was reviewed on 04/01 Glucose remains well controlled. Continue AccuCheks covering with sliding scale. Hypoglycemia protocol available as needed. Holding metformin Changed to regular diet (7) BPH (benign prostatic hyperplasia): Qualifiers: Lower urinary tract symptom presence: symptoms present Lower urinary tract symptom detail: nocturia Qualified Code(s): N40.1 - Benign prostatic hyperplasia with lower urinary tract symptoms; R35.1 - Nocturia Code(s): N40.0 - Benign prostatic hyperplasia without lower urinary tract symptoms Status: Acute Assessment and Plan: Stable. Continue Flomax and finasteride. (8) Electrolyte abnormality: Code(s): E87.8 - Other disorders of electrolyte and fluid balance, not elsewhere classified Status: Acute Assessment and Plan: Potassium, phos and Mag all low again. Will replace Monitor on tele. Follow electrolytes and replace as needed. Plan Code status -full DVT prophylax -SCDs DS: Summary Hospital Course Hospital Course: 77yo male with lung cancer w
[2023-04-02] MEDS: METOPROLOL TARTRATE 12.5 MG TABLET PO (13:55)
[2023-04-02 21:54] LABS: Pneumococcal Antigen Urine Not Detected (Not Detected)
[2023-04-03 01:47] LABS: Legionella pneumophila Ag Ur Not Detected (Not Detected)
== END 2023-04-02 14:45 | disposition home health service (06) | DRG 193 ==
LOC: ANHED 18:14 → ANHIMU 18:44
PROVIDERS: Internal Medicine; Admitting Provider Hospitalist; Emergency Provider Emergency Medicine; PCP Nurse Practitioner; Visit Provider Student in an Organized Health Care Education/Training Program
DX: J18.9 Pneumonia, unspecified organism (principal); D61.810 Antineoplastic chemotherapy induced pancytopenia; C34.90 Malignant neoplasm of unspecified part of unspecified bronchus or lung; K86.1 Other chronic pancreatitis; C79.31 Secondary malignant neoplasm of brain; D64.81 Anemia due to antineoplastic chemotherapy; D63.0 Anemia in neoplastic disease; T45.1X5A Adverse effect of antineoplastic and immunosuppressive drugs, initial encounter; D70.2 Other drug-induced agranulocytosis; E78.2 Mixed hyperlipidemia; E11.9 Type 2 diabetes mellitus without complications; E86.1 Hypovolemia; E87.8 Other disorders of electrolyte and fluid balance, not elsewhere classified; E86.0 Dehydration; I10 Essential (primary) hypertension; I95.9 Hypotension, unspecified; I25.10 Atherosclerotic heart disease of native coronary artery without angina pectoris; I25.2 Old myocardial infarction; K21.9 Gastro-esophageal reflux disease without esophagitis; N40.1 Benign prostatic hyperplasia with lower urinary tract symptoms; R50.81 Fever presenting with conditions classified elsewhere; R35.1 Nocturia; R30.0 Dysuria; M17.0 Bilateral primary osteoarthritis of knee; N40.0 Benign prostatic hyperplasia without lower urinary tract symptoms; Z20.822 Contact with and (suspected) exposure to COVID-19; Z79.82 Long term (current) use of aspirin; Z79.84 Long term (current) use of oral hypoglycemic drugs; Z92.21 Personal history of antineoplastic chemotherapy; Z98.41 Cataract extraction status, right eye; Z98.42 Cataract extraction status, left eye; Z96.1 Presence of intraocular lens; Z87.891 Personal history of nicotine dependence
CPT/HCPCS: 36415; 36430; 71046; 80048; 80053; 80069; 81001; 82948; 83605; 83735; 84100; 84132; 85025; 85049; 85055; 85610; 85730; 86140; 86850; 86900; 86901; 86923; 87040; 87081; 87449; 87637; 87899; 94640; 96361; 96365; 96367; 97161; 97165; 99285; A9270; G0378; J0456; J0692; J0696; J1815; J3475; J7030; J7050; P9016; P9034; Q5101

== ENCOUNTER 2023-05-16 09:59 | Emergency (ER) | payer MEDICARE, SELFPAY ==
[2023-05-16] VITALS (31 sets, daily range): BP systolic 88–121; BP diastolic 46–71; PULSE 81–118; RESP 15–20; TEMP 36.4–37; O2SAT 97–100
--- NOTE | ~2023-05-16 | CT_ITS ---
EXAMINATION: CT brain wo con INDICATION: Head injury COMPARISON: 10/31/2006 TECHNIQUE: Standard unenhanced head CT. The dose-length product (DLP) was 605.33 mGy-cm. The mA was a djusted according to patient size. Iterative reconstruction technique was employed. FINDINGS: No acute intraparenchymal hemorrhage. No evidence of mass lesion. No evidence of acute infa rction. There is mild periventricular and subcortical hypodensity probably related to small vessel is chemic disease. There is mild prominence of the sulci and ventricles related to cerebral atrophy. Int racranial calcified cerebral atherosclerosis is noted. No extra-axial collections. No mass effect or midline shift. The orbits and soft tissues are unremarkable. There is mild mucosal thickening of the paranasal sinuses. IMPRESSION: 1. No acute intracranial abnormality. 2. Age related findings. Reviewed, dictated and finalized at location B. ATHERAPIST
--- NOTE | ~2023-05-16 | CT_ITS ---
EXAMINATION: CT cervical spine wo con DATE: 05/16/2023 12:35 INDICATION: Head injury TECHNIQUE: Computed tomography (CT) of the cervical spine was performed without intravenous contrast. The dose-length product (DLP) was 328.57 mGy-cm. Automated exposure control and iterative reconstruc tion technique were employed. COMPARISON: None FINDINGS: Bone alignment is normal. There is no fracture. The odontoid process is intact. There is mo derate loss of intervertebral disc space height at C5-6 and mild loss of intervertebral disc space he ight throughout the remainder of the cervical spine. There is multilevel severe facet and uncovertebr al joint osteoarthritis. There is a 4.2 cm nodule of the right thyroid. IMPRESSION: 1. Severe cervical spondylosis without acute findings. 2. Right thyroid nodule. Consider nonemergent thyroid ultrasound for risk stratification. Reviewed, dictated and finalized at location B. E SALES DELIVERY DRIVERS SUPERVISOR IMPRESSION: 1. Severe cervical spondylosis without acute findings. 2. Right thyroid nodule. Consider nonemergent thyroid ultrasound for risk strat ification.
--- NOTE | ~2023-05-16 | XR_ITS ---
EXAMINATION: XR chest 2V DATE: 05/16/2023 11:06 INDICATION: Cough and weakness. Recent falls. TECHNIQUE: PA and lateral views of the chest were obtained. COMPARISON: Chest radiograph dated 03/28/[address] dated 02/05/2023 FINDINGS: Decrease in size of a masslike opacity at the left hilum. There are persistent reticular and mild air space opacities in the bilateral lower lung zones. Persistent lucent pneumatocele at the medial left lung base. No new airspace opacities, pleural effusion or pneumothorax. Heart size is normal. Likely splenic artery embolization coils and multiple cystgastrostomy internal drainage tubes in the left up per quadrant for treatment of chronic pancreatitis. IMPRESSION: 1. Persistent reticular and airspace opacities in bilateral lower lung zones which could represent mi ld pulmonary edema, atelectasis, pneumonia or some combination thereof. 2. Decrease in size of a masslike left hilar opacity suggesting response to treatment of reported kno wn lung cancer. 3. Postoperative changes in the left upper quadrant likely for treatment of complications of chronic pancreatitis. Reviewed, dictated and finalized at location A. CE EQUIPMENT MECHANIC IMPRESSION: 1. Persistent reticular and airspace opacities in bilateral lower lung zones wh ich could represent mild pulmonary edema, atelectasis, pneumonia or some combin ation thereof. 2. Decrease in size of a masslike left hilar opacity suggesting response to wilbur atment of reported known lung cancer. 3. Postoperative changes in the left upper quadrant likely for treatment of com plications of chronic pancreatitis.
--- NOTE | 2023-05-16 10:35 | ECG_ITS ---
Measurements Intervals [place] Rate: 113 P: 79 TN: 148 QRS: 57 QRSD: 90 T: 28 QT: 304 QTc: 418 Interpretive Statements SINUS TACHYCARDIA NONSPECIFIC ST & T-WAVE ABNORMALITY ABNORMAL RHYTHM ECG COMPARED TO ECG 02/05/2023 19:30:43 PVCS ARE NO LONGER SEEN Electronically Signed On 05-16-2023 12:43:31 EARTH SCIENCE LABORATORY TECHNICIAN by Jann Cardenas M.D.
[2023-05-16 11:02] LABS: Hematocrit 21.6 % (42.0-52.0); Immature Platelet Fraction Pct 23.6 % (0.9-11.2); Mean Corpuscular HGB Conc 30.6 g/dl (32-36); Mean Corpuscular Hemoglobin 32.4 pg (26-34); Mean Corpuscular Volume 105.9 fl (80-100); Mean Platelet Volume 12.4 fl (7.4-10.4); Red Blood Count 2.04 M/mm3 (4.6-6.20); Red Cell Distribution Width 23.3 % (11.5-14.5); White Blood Count 5.3 K/mm3 (4.5-10.0)
[2023-05-16 11:18] LABS: Alanine Aminotransferase 52 U/L (6-50); Albumin Level 4.1 g/dL (3.5-5.1); Alkaline Phosphatase 186 U/L (38-126); Anion Gap 8 mmol/L (8-16); Aspartate Amino Transferase 38 U/L (17-59); Bilirubin,Total 0.7 mg/dL (0.2-1.3); Blood Urea Nitrogen 22 mg/dL (9-20); Carbon Dioxide 25 mmol/L (22-30); Chloride 103 mmol/L (98-107); Estimated CRCL calculation 85 ml/min; Estimated Glomerular Filt Rate > 60; Glucose 218 mg/dL (65-110); Potassium 3.7 mmol/L (3.4-5.0); Sodium 136 mmol/L (137-145)
[2023-05-16 11:24] LABS: Hemoglobin 6.6 g/dL (14.0-18.0)
[2023-05-16 11:25] LABS: Platelet Count Result 23 k/mm3 (150-375)
[2023-05-16 11:33] LABS: Band Neutrophils Percent 17 % (0-6); Lymphocytes Absolute Manual 0.84 K/mm3 (1.1-4.5); Metamyelocytes Percent 1 %; Monocytes Absolute Manual 0.42 K/mm3 (0.1-0.90); Monocytes Percent Manual 8 % (3-9); Myelocytes Percent 3 %; Neutrophils Absolute Manual 3.81 K/mm3 (1.3-6.7); Neutrophils Percent Manual 55 % (46-73); Platelet Estimate Decreased (Adequate); Total Cells Counted 100
[2023-05-16 11:34] LABS: Large Platelets Present; Macrocytosis 1+ (NORMAL); Schistocytes None Seen (NORMAL)
--- NOTE | 2023-05-16 12:20 | ED.WEAKNESS ---
HPI - Weakness General Chief complaint: Weakness Stated complaint: FREQ FALL,HEAD INJURY Time Seen by Provider: 05/16/23 11:24 History of Present Illness HPI Narrative: Patient is a 77-year-old male with a history of metastatic lung cancer on chemotherapy at [facility] presenting after a fall. Patient states that he has been increasingly weak and has had several falls over the last several days. States that he struck the left side of his head earlier today so he came in for evaluation. States that he has been falling because of the legs does give out from underneath him. He denies chest pain or shortness of breath. No recent infectious symptoms. Denies melena or hematochezia. States that he has chemotherapy every 3 weeks. He is due for his next session next week. Related Data Home Medications Medication Instructions Recorded Confirmed ashioqzo-va-wrktp 300 mcg-K 60 1 tablet PO DAILY 11/06/20 05/07/23 mcg-lycop 600 mcg-lutein 300 mcg tablet (Centrum Silver Men) mirtazapine 7.5 mg tablet 15 mg PO HS 03/28/23 05/07/23 prednisone 20 mg tablet 20 mg PO .COMPLEX 04/25/23 05/07/23 Allergies Allergy/AdvReac Type Severity Reaction Status Date / Time No Known Allergies Allergy Mild Verified 05/16/23 10:01 Review of Systems Review of Systems: All systems reviewed & are unremarkable except as noted in HPI and below PMFSH Past Medical History Medical History CAD (coronary artery disease) Chronic GERD Degenerative arthritis of knee, bilateral H/O acute myocardial infarction H/O myocardial infarction, greater than 8 weeks Hemoglobin A1c less than 7.0% 08/25/20 A1c = 6.9 Mixed hyperlipidemia 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, mediastinum, and left occipital lobe Type 2 diabetes mellitus without complication, without long-term current use of insulin Surgical History Surgical History History of incision and drainage drained sebaceous cyst 04/30/23 SAW 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 Status post cataract extraction of both eyes with insertion of intraocular lens Family History Family History Mother Family history of diabetes mellitus in first degree relative Sibling Family history of diabetes mellitus in first degree relative Social History Social History Social History: The patient lives with his of 57 years. They raised 2 sons. 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 He quit smoking tobacco over 25 years ago. Prior to quitting he smoked up to 3 packs cigarettes per day. He drinks alcohol 2 to 3 times a week. Code status: Full code Surrogate decision maker: Smoking packs per day: 1 Smoking cigarettes per day: 20.0 Years smoked: 30 Smoking pack-years: 30.00 Smoking status: Former smoker Tobacco type: cigarettes Second hand tobacco smoke exposure: No Smoking end date: 03/06/82 Alcohol intake: current Drinks per week: 3 Substance use: former Substance use type: does not use Do You Feel Safe in your Home?: Yes Lack of Transportation: No Lack of Food: Never True Current Housing: I Have Housing Concerned About Future Housing: No Difficulty Paying Gas/Electric Bills: No Difficulty Paying for Meds: No Currently Unemployed: No Education: High School Diploma/GED Difficulty w/ Childcare or Family Care: No Living arrangements: with family Occupation/Education: retired Gender identity (if verbalized by the patient): Male Spiritual care concerns: No Exam Narrative: GENERAL: Nontoxic, no acute distress, pleasant cooperative HEAD: Normocephalic, hematoma left forehead with overlying superficial abrasion EYES: PERRLA and EOMI
[2023-05-16] MEDS: SODIUM CHLORIDE 0.9% IV 1,000 ML 999 ML IV CONT (12:52)
--- NOTE | 2023-05-16 12:55 | PC.NURSE ---
Signed consent for blood transfusion on pts chart.
[2023-05-16 12:58] LABS: Lactic Acid Reflex 3.2 mmol/L (0.7-2.0); Lipase 42 U/L (23-300); Magnesium 1.5 mg/dL (1.6-2.3)
[2023-05-16 12:59] LABS: INR 1.1; Prothrombin Time 14.4 Seconds (11.1-14.7)
[2023-05-16 13:00] LABS: Partial Thromboplastin Time 26.9 SECONDS (22.3-36.8)
[2023-05-16 13:10] LABS: Troponin I 0.025 ng/mL (0.000-0.034)
[2023-05-16] MEDS: SODIUM CHLORIDE 0.9% IV 250 ML 30 ML IV CONT ×2 (13:11→16:42)
[2023-05-16] MEDS: MAGNESIUM SULF 4 GM/WATER100ML 4 GM/100 ML BAG IVPB (15:10)
[2023-05-16 15:46] LABS: Reflex Lactic Acid Yes or No Add Lactic
[2023-05-16 16:07] LABS: Hematocrit 22.1 % (42.0-52.0)
[2023-05-16 16:10] LABS: Hemoglobin 6.9 g/dL (14.0-18.0)
[2023-05-16 16:16] LABS: Lactic Acid 1.8 mmol/L (0.7-2.0)
[2023-05-16 16:17] LABS: Magnesium 2.8 mg/dL (1.6-2.3)
--- NOTE | 2023-05-16 17:09 | PC.NURSE ---
Dinner tray ordered for pt
[2023-05-16 17:51] LABS: Appearance Urine Clear (Clear); Bacteria Urine None Seen /hpf; Bilirubin Urine Negative (Negative); Blood Urine Negative (Negative); Color Urine Dark Yellow (Yellow); Glucose Urine UA Negative (Negative); Ketones Urine Trace mg/dL (Negative); Leukocyte Esterase Ur Trace LEU/UL (Negative); Nitrate Urine Negative (Negative); Non Pathogenic Casts 0-2; Protein Urine Trace mg/dL (Negative); RBC Urine 0-2 /hpf (0-2); Specific Grav Ur 1.021 (1.001-1.035); Squamous Epithelial Cell Urine None seen /hpf (Few); WBC Urine 0-5 /hpf; pH Urine 5.5 (5.0-9.0)
[2023-05-16 17:52] LABS: Add Urine Microscopic? YES
--- NOTE | 2023-05-16 19:02 | PC.NURSE ---
Attempted to call report, person answering phone states, the nurse getting that pt is busy getting bedside report. Can you call back in 30 minutes?
--- NOTE | 2023-05-16 19:24 | PC.NURSE ---
Attempted to call report again. They stated they would call back after getting report. They were given the number to [place] [facility] and were asked to ask for the charge nurse for report.
--- NOTE | 2023-05-16 19:35 | PC.NURSE ---
Report given to FELIX Rubin
--- NOTE | 2023-05-16 20:30 | PC.NURSE ---
this rn assumed care of patient. this rn took patient report from cortez humphrey.
[2023-05-16 21:07] LABS: Troponin I 0.016 ng/mL (0.000-0.034)
== END 2023-05-16 20:40 | disposition short-term general hospital (02) ==
LOC: ANHED 11:30
PROVIDERS: Emergency Provider Emergency Medicine; PCP Nurse Practitioner
DX: D69.6 Thrombocytopenia, unspecified (principal); D64.9 Anemia, unspecified; E83.42 Hypomagnesemia; C34.90 Malignant neoplasm of unspecified part of unspecified bronchus or lung; C78.1 Secondary malignant neoplasm of mediastinum; C79.31 Secondary malignant neoplasm of brain; C79.89 Secondary malignant neoplasm of other specified sites; I25.10 Atherosclerotic heart disease of native coronary artery without angina pectoris; I25.2 Old myocardial infarction; E78.2 Mixed hyperlipidemia; E11.9 Type 2 diabetes mellitus without complications; K21.9 Gastro-esophageal reflux disease without esophagitis; M17.0 Bilateral primary osteoarthritis of knee; Z96.1 Presence of intraocular lens; Z98.42 Cataract extraction status, left eye; Z98.41 Cataract extraction status, right eye; Z79.60 Long term (current) use of unspecified immunomodulators and immunosuppressants; Z87.891 Personal history of nicotine dependence; M47.812 Spondylosis without myelopathy or radiculopathy, cervical region; E04.1 Nontoxic single thyroid nodule; Z79.84 Long term (current) use of oral hypoglycemic drugs; R91.8 Other nonspecific abnormal finding of lung field
CPT/HCPCS: 36415; 36430; 70450; 71046; 72125; 80053; 81001; 83605; 83690; 83735; 84484; 85014; 85018; 85025; 85055; 85610; 85730; 86850; 86900; 86901; 86923; 93005; 96361; 96365; 99285; J3475; J7030; J7050; P9016

== ENCOUNTER 2023-06-30 01:19 | Day surgery (SDC) | payer MEDICARE, SELFPAY ==
--- NOTE | 2023-06-23 10:49 | PC.NURSE ---
Report to the Outpatient Waiting Room, entrance under the green pavilion located off [facility], at time __[id number] on date _06/30/23 . Planned Procedure Time: . Time changes happen often and if your time is changed the preop area will call you the afternoon before. - You and your visitor will be asked to self-screen and do not enter if you have any COVID symptoms. - A mask is optional within the hospital at this time. MAY HAVE LIGHT BREAKFAST MORNING OF SURGERY Take the following medications with a SIP of water the morning of surgery: ___TAKE ROUTINE MORNING MEDICATIONS DO NOT STOP ANY OF YOUR OTHER PRESCRIPTION MEDICATIONS PRIOR TO SURGERY ?EXCEPT THE FOLLOWING Medications to discontinue per physician NONE Date to take last dose Please no make-up, nail belarusian, hairspray, perfume, deodorant, or body powder the day of surgery. No jewelry (including any body piercings) or valuables the day of surgery, leave them at home. Please take a shower or bath the night before, or the morning of, surgery with an antibacterial soap. Wear comfortable, loose fitting clothing. Children are encouraged to wear pajamas. - Jewelry must be removed prior to entering the operating room. Rings and piercings that are not removed may be cut off. - The hospital will not accept responsibility for valuables. - Please leave all valuables, including medications, at home the day of surgery. LOCAL ANESTHESIA- MAY DRIVE HOME YOURSELF If you are going home after surgery, a licensed limo driver must drive you home. - NO public transportation without another adult if you receive anesthesia. - We recommend that an adult stay with you for 24 hours following discharge. - We also recommend that you do not drive, make important decision, drink alcoholic beverages, or take any drugs that were not prescribed by your health care provider for at least 24 hours after your discharge time. Follow any additional instructions given to you from your surgeon. If you or anyone in your household have experienced Covid symptoms in the past week, please notify your surgeon or the nurse liaison at the phone number below for possible testing. Telephone instructions given to ___PATIENT and asked if any additional questions and then verbalized understanding. Patient advised to call surgeon office or pre surgery nurse liaison [phone] if any additional questions.
[2023-06-23 10:52] VITALS: BMI 23.7
--- NOTE | 2023-06-30 12:58 | PM.IMHP ---
H&P: HPI History of Present Illness Date/Time: 06/30/23 12:58 Chief Complaint: Back cyst Narrative: Lalito returns following recent office incision and drainage of infected sebaceous back cyst on 04/30/23. Patient states he is feeling well. He denies any pain from the wound. He is no longer packing the wound. Denies any drainage. He states the area is tender. Review of Systems Review of Systems: The remainder of the review of systems to include constitutional, HEENT, cardiovascular, respiratory, GI, , integumentary, musculoskeletal, endocrine, immunologic, hematologic, psychiatric, and neurologic are all negative except for which is mentioned above in the HPI. 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, mediastinum, and left occipital lobe Type 2 diabetes mellitus without complication, without long-term current use of insulin Surgical History Surgical History History of incision and drainage drained sebaceous cyst 04/30/23 SAW 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 Status post cataract extraction of both eyes with insertion of intraocular lens Family History Family History Mother Family history of diabetes mellitus in first degree relative Sibling Family history of diabetes mellitus in first degree relative Social History Social History Social History: The patient lives with his of 57 years. They raised 2 sons. 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 He quit smoking tobacco over 25 years ago. Prior to quitting he smoked up to 3 packs cigarettes per day. He drinks alcohol 2 to 3 times a week. Code status: Full code Surrogate decision maker: Smoking packs per day: 2 Smoking cigarettes per day: 40.0 Years smoked: 30 Smoking pack-years: 60.00 Smoking status: Former smoker Tobacco type: cigarettes Second hand tobacco smoke exposure: No Smoking end date: 03/24/81 Alcohol intake: current Drinks per week: 3 Substance use: former Substance use type: does not use Do You Feel Safe in your Home?: Yes Lack of Transportation: No Lack of Food: Never True Current Housing: I Have Housing Concerned About Future Housing: No Difficulty Paying Gas/Electric Bills: No Difficulty Paying for Meds: No Currently Unemployed: No Education: High School Diploma/GED Difficulty w/ Childcare or Family Care: No Living arrangements: with family Occupation/Education: retired Gender identity (if verbalized by the patient): Male Spiritual care concerns: No Meds Home Medications and Allergies Home Medications Medication Instructions Recorded Confirmed Type [id number]-[id number] 300 mcg-K 60 1 tablet PO DAILY 11/06/20 06/23/23 History mcg-lycop 600 mcg-lutein 300 mcg tablet (Centrum [facility]) blood sugar diagnostic (OneTouch #100 ea 07/19/22 05/07/23 Rx Verio test strips) blood-glucose meter (OneTouch #1 ea 07/19/22 05/07/23 Rx Verio Flex Meter) mirtazapine 7.5 mg tablet 15 mg PO HS 03/28/23 06/23/23 History prednisone 20 mg tablet 10 mg PO EVERY OTHER DAY 04/25/23 06/23/23 History metformin 1,000 mg tablet 1,000 mg PO BIDWMEAL #180 tabs 05/15/23 06/23/23 Rx pantoprazole 40 mg tablet,delayed See Rx Instructions .Route 05/15/23 06/23/23 Rx release .COMPLEX #90 tabs finasteride 5 mg tablet 5 mg PO DAILY #90 tabs 06/02/23 06/23/23 Rx tamsulosin 0.4 mg capsule 0.4 mg PO QHS #90 caps 06/16/23
--- NOTE | 2023-06-30 13:00 | WPDHPUPDATE1 ---
History and Physical Update Update Date/Time: 06/30/23 13:00 History and Physical has been reviewed, including an updated exam of the patient. There are NO changes in the patient's condition. Risks, benefits, and alternatives have been discussed and questions answered. Patient agrees to proceed with procedure.
[2023-06-30 13:05] VITALS: BP 123/66; PULSE 104; RESP 16; TEMP 37; O2SAT 100
[2023-06-30 13:17] VITALS: BP 115/69; PULSE 102; RESP 12; O2SAT 98
[2023-06-30] MEDS: LIDO 1%/EPINEPHRINE 1:100,000 50 ML VIAL 15 ML INFILTRATE (13:23)
[2023-06-30] MEDS: BUPivacaine HCL 0.5% PF 30 ML VIAL 15 ML INFILTRATE (13:23)
[2023-06-30 13:27] VITALS: BP 110/71; PULSE 101; RESP 12; O2SAT 99
[2023-06-30 13:37] VITALS: BP 104/62; PULSE 101; RESP 12; O2SAT 98
[2023-06-30 13:43] VITALS: BP 120/61; PULSE 97; RESP 16; O2SAT 100
--- NOTE | 2023-07-03 14:15 | W.PM.PROC2 ---
Procedure Note - Detailed Date of Procedure 06/30/23 Pre-op Diagnosis infected back cyst Post-op Diagnosis Same Procedure Performed Excision of ruptured sebaceous back cyst with 4cm intermediate layered wound closure. Surgeon Lang Wahl MD Anesthesia Local Indications Patient is a 78-year-old gentleman who presents to my office a few weeks ago with an infected sebaceous cyst on his mid back region. The infected cyst was incised and drained in the office and the cyst has now contracted down to a smaller scarred area. He presents now for excision the remaining cyst wall. Findings Patient a small scarred area in the midportion of the back at the midline. There is no residual infection in the area. The area of the cyst excised was [id number]. There was a 4cm intermediate layered wound closure. Description of Procedure After informed consent was obtained patient brought to the operating room was placed in the prone position on operating table. The area the mid back was then prepped and draped usual sterile fashion. A time-out was then performed correctly identifying the patient as well as procedure to be performed. Site marking was verified. Was not given any IV antibiotics. I then anesthetized around the area of the cyst wall utilizing 1% lidocaine mixed with 0.5% Marcaine in a 50 50 mixture with some epinephrine. Once I had achieved adequate anesthesia I then made a longitudinal elliptical incision to incorporate the whole scarred area and cyst wall. Excision was carried deeply down through the dermis skin with a scalpel and then with utilizing electrocautery and completely excised out the ellipse of skin containing the whole cyst wall. The ellipse of tissue that I excised was [id number]. the specimen sent off the the table and submitted to pathology. I then close incision utilizing an intermediate layered wound closure measuring 4cm in length. Interrupted 2-0 Vicryl sutures used in the subcutaneous tissues and deep dermis of the skin. This is then followed by a layer of interrupted 3-0 Vicryl sutures in superficial tissues. Lastly a running subcuticular 4-0 Monocryl suture was used to approximate the skin edges. The incision was then cleaned and then skin glue was applied. The patient tolerated the procedure well no complications. All sponges, needles, and instrument counts were correct at the end procedure. EBL was _5__cc. The patient was awakened and taken to recovery in stable and satisfactory condition. Implants None Estimated Blood Loss 5 Drains No Packing No Pathology Yes ( back cyst sent to pathology) Complications No immediate complications Condition Stable Disposition Same day [facility] Billing Surgery - Charge Forward: Surgery Billing
== END 2023-06-30 14:05 | disposition home or self-care (01) ==
PROVIDERS: PCP Nurse Practitioner; Visit Provider Surgery
PROC: (CPT 11403; principal; 2023-06-30 13:30)
DX: L90.5 Scar conditions and fibrosis of skin (principal); K21.9 Gastro-esophageal reflux disease without esophagitis; I25.2 Old myocardial infarction; E78.2 Mixed hyperlipidemia; E11.9 Type 2 diabetes mellitus without complications; I72.8 Aneurysm of other specified arteries; Z79.52 Long term (current) use of systemic steroids; Z79.84 Long term (current) use of oral hypoglycemic drugs; Z79.82 Long term (current) use of aspirin; Z87.891 Personal history of nicotine dependence; Z85.118 Personal history of other malignant neoplasm of bronchus and lung; Z86.79 Personal history of other diseases of the circulatory system
CPT/HCPCS: 11403; 12032; 88305

== ENCOUNTER 2023-09-17 11:14 | Emergency (ER) | payer MEDICARE, SELFPAY ==
--- NOTE | ~2023-09-17 | US_ITS ---
EXAMINATION: US venous doppler [facility] DATE: 09/17/2023 12:14 INDICATION: Left lower limb swelling. TECHNIQUE: Grayscale ultrasound images without and with compression and Doppler ultrasound images of the left lower extremity veins were obtained. COMPARISON: None. FINDINGS: The visualized portions of left common femoral vein, profunda (deep) femoral vein, femoral vein, popl iteal vein, peroneal veins, posterior tibial veins, and greater saphenous vein outflow are patent. IMPRESSION: 1. No deep venous thrombosis. Reviewed, dictated and finalized at location A.
--- NOTE | ~2023-09-17 | XR_ITS ---
EXAMINATION: XR ankle LT min 3V, XR foot LT min 3V DATE: 09/17/2023 11:47 INDICATION: Left foot and ankle injury post fall TECHNIQUE: 1. Anteroposterior, mortise, additional oblique and lateral view of the left ankle were obtained. 2. Dorsoplantar, two oblique and lateral views of the left foot were obtained. COMPARISON: None. FINDINGS: Nondisplaced avulsion fracture at the distal tip of the lateral malleolus best appreciated on the evelin micaela palmar view of the foot. No other acute fractures identified. Corticated ossicle along the distal medial malleolus which could represent either an additional chronic nonunited avulsion fracture frag ment or heterotopic ossification related to chronic deltoid ligament sprain. Alignment of the left fo ot and ankle remains essentially anatomic. Mild polyarticular osteoarthritis at multiple joints in th e mid and forefoot. Small Achilles and plantar calcaneal spurs. There is soft tissue swelling about t he ankle both medially and laterally. No ankle joint effusion. IMPRESSION: 1. Small nondisplaced avulsion fracture at the distal tip of the lateral malleolus. 2. Chronic corticated ossicle at the distal medial malleolus consistent with sequela of old trauma ei ther chronic nonunited avulsion fracture fragment or heterotopic calcification related to prior delto id ligament sprain. Reviewed, dictated and finalized at location B. IMPRESSION: 1. Small nondisplaced avulsion fracture at the distal tip of the lateral malleo maryjane. 2. Chronic corticated ossicle at the distal medial malleolus consistent with se quela of old trauma either chronic nonunited avulsion fracture fragment or hete rotopic calcification related to prior deltoid ligament sprain.
[2023-09-17 11:27] VITALS: BP 108/70; PULSE 100; RESP 16; TEMP 36.7; O2SAT 98
--- NOTE | 2023-09-17 11:27 | ED.LOWEXIN ---
HPI - Extremity Injury (Lower) General Chief Complaint: Extremity Injury, Lower Stated Complaint: R foot injury Time Seen by Provider: 09/17/23 11:18 History of Present Illness HPI Narrative: Pt fell last week and twisted left ankle. Pt is diabetic and has neuropathy so didn't really notice the pain but noticed that the foot and ankle were swollen until a day or two ago. Pt went to oncology appointment today and oncologist concerned about DVT because he has cancer. Also started on augmentin for knee abrasions. Related Data Home Medications Medication Instructions Recorded Confirmed [id number] 300 mcg-K 60 1 tablet PO DAILY 11/06/20 07/16/23 mcg-lycop 600 mcg-lutein 300 mcg tablet (Centrum Silver Men) mirtazapine 7.5 mg tablet 15 mg PO HS 03/28/23 07/16/23 prednisone 20 mg tablet 10 mg PO EVERY OTHER DAY 04/25/23 07/16/23 aspirin 81 mg tablet,delayed 81 mg PO DAILY 06/23/23 07/16/23 release (Adult Low Dose Aspirin) folic acid 1 mg tablet 1 mg PO DAILY 06/23/23 07/16/23 Allergies Allergy/AdvReac Type Severity Reaction Status Date / Time No Known Allergies Allergy Mild Verified 07/15/23 10:24 Review of Systems Review of Systems: All systems reviewed & are unremarkable except as noted in HPI and below PMFSH Past Medical History Medical History (Updated 09/17/23 @ 14:11 by Scarlett Sarabia III, ) CAD (coronary artery disease) Chronic GERD Degenerative arthritis of knee, bilateral H/O acute myocardial infarction H/O myocardial infarction, greater than 8 weeks Hemoglobin A1c less than 7.0% 08/25/20 A1c = 6.9 Mixed hyperlipidemia 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, mediastinum, and left occipital lobe Type 2 diabetes mellitus without complication, without long-term current use of insulin Surgical History Surgical History (Updated 07/15/23 @ 10:26 by Tiffani Eldridge MA) History of incision and drainage drained sebaceous cyst 04/30/23 SAW Hx of excision of mass Excision of ruptured sebaceous back cyst with 4cm intermediate layered wound closure 06/23/23 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 Status post cataract extraction of both eyes with insertion of intraocular lens Family History Family History Mother Family history of diabetes mellitus in first degree relative Sibling Family history of diabetes mellitus in first degree relative Social History Social History Social History: The patient lives with his of 57 years. They raised 2 sons. 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 He quit smoking tobacco over 25 years ago. Prior to quitting he smoked up to 3 packs cigarettes per day. He drinks alcohol 2 to 3 times a week. Code status: Full code Surrogate decision maker: Smoking packs per day: 2 Smoking cigarettes per day: 40.0 Years smoked: 30 Smoking pack-years: 60.00 Smoking status: Former smoker Tobacco type: cigarettes Second hand tobacco smoke exposure: No Smoking end date: 03/24/81 Alcohol intake: current Drinks per week: 3 Substance use: former Substance use type: does not use Do You Feel Safe in your Home?: Yes Lack of Transportation: No Lack of Food: Never True Current Housing: I Have Housing Concerned About Future Housing: No Difficulty Paying Gas/Electric Bills: No Difficulty Paying for Meds: No Currently Unemployed: No Education: High School Diploma/GED Difficulty w/ Childcare or Family Care: No Living arrangements: with family Occupation/Education: retired Gender identity (if verbalized by the patient): Male Spiritual care concerns: No Exam Const: General: healthy appearing and no acute distress Nutritional Appearance: well nourished Orientation/consciousness: patient oriented x3 Limitations: no limita
[2023-09-17 13:09] LABS: Alanine Aminotransferase 89 U/L (6-50); Albumin Level 4.3 g/dL (3.5-5.1); Alkaline Phosphatase 333 U/L (38-126); Anion Gap 10 mmol/L (4-12); Aspartate Amino Transferase 120 U/L (17-59); Bilirubin,Total 1.2 mg/dL (0.2-1.3); Blood Urea Nitrogen 21 mg/dL (9-20); Calcium 9.2 mg/dL (8.4-10.2); Carbon Dioxide 24 mmol/L (22-30); Chloride 106 mmol/L (98-107); Estimated CRCL calculation 69 ml/min; Estimated Glomerular Filt Rate > 60; Glucose 123 mg/dL (65-110); Potassium 4.4 mmol/L (3.4-5.0); Sodium 140 mmol/L (137-145)
[2023-09-17 13:12] LABS: INR 1.1; Partial Thromboplastin Time 28.9 Seconds (22.3-36.8); Prothrombin Time 14.3 Seconds (11.1-14.7)
[2023-09-17 13:20] LABS: Basophils Percent Auto 0.6 % (0.2-1.2); Eosinophils Absolute Auto 0.1 K/mm3 (0-0.3); Eosinophils Percent Auto 0.9 % (0-4.4); Hematocrit 29.2 % (42.0-52.0); Hemoglobin 9.1 g/dL (14.0-18.0); Immature Granulocyte Absolute 0.04 K/mm3 (0.00-0.031); Immature Granulocyte Percent A 0.8 % (0-0.5); Immature Platelet Fraction Pct 7.4 % (0.9-11.2); Lymphocytes Absolute Auto 0.38 K/mm3 (0.9-3.2); Lymphocytes Percent Auto 7.2 % (18.3-44.2); Mean Corpuscular HGB Conc 31.2 g/dl (32-36); Mean Corpuscular Hemoglobin 35.4 pg (26-34); Mean Corpuscular Volume 113.6 fl (80-100); Mean Platelet Volume 11.7 fl (7.4-10.4); Monocytes Absolute Auto 0.1 K/mm3 (0.1-0.6); Monocytes Percent Auto 1.1 % (2.6-8.5); Neutrophils Absolute Auto 4.7 K/mm3 (1.3-6.7); Neutrophils Percent Auto 89.4 % (45.5-73.1); Platelet Count Result 99 k/mm3 (150-375); Red Blood Count 2.57 M/mm3 (4.6-6.20); Red Cell Distribution Width 21.3 % (11.5-14.5); White Blood Count 5.3 K/mm3 (4.5-10.0)
[2023-09-17 14:08] LABS: Erythrocyte Sedimentation Rate > 140 mm/hr (0-20)
== END 2023-09-17 14:33 | disposition home or self-care (01) ==
PROVIDERS: Emergency Provider Emergency Medicine; PCP Nurse Practitioner
DX: S82.65XA Nondisplaced fracture of lateral malleolus of left fibula, initial encounter for closed fracture (principal); S80.212A Abrasion, left knee, initial encounter; S80.211A Abrasion, right knee, initial encounter; R22.41 Localized swelling, mass and lump, right lower limb; C34.90 Malignant neoplasm of unspecified part of unspecified bronchus or lung; C78.1 Secondary malignant neoplasm of mediastinum; C79.89 Secondary malignant neoplasm of other specified sites; C79.31 Secondary malignant neoplasm of brain; I25.10 Atherosclerotic heart disease of native coronary artery without angina pectoris; I25.2 Old myocardial infarction; E78.2 Mixed hyperlipidemia; E11.40 Type 2 diabetes mellitus with diabetic neuropathy, unspecified; K21.9 Gastro-esophageal reflux disease without esophagitis; M17.0 Bilateral primary osteoarthritis of knee; Z96.1 Presence of intraocular lens; Z98.42 Cataract extraction status, left eye; Z98.41 Cataract extraction status, right eye; Z87.891 Personal history of nicotine dependence; Z79.82 Long term (current) use of aspirin; Z79.52 Long term (current) use of systemic steroids; Z79.84 Long term (current) use of oral hypoglycemic drugs; Z79.899 Other long term (current) drug therapy; W19.XXXA Unspecified fall, initial encounter; X50.9XXA Other and unspecified overexertion or strenuous movements or postures, initial encounter
CPT/HCPCS: 36415; 73610; 73630; 80053; 85025; 85055; 85610; 85652; 85730; 87040; 93971; 99284

== ENCOUNTER 2023-11-27 09:28 | Inpatient (IN) | payer MEDICARE, SELFPAY ==
[2023-11-27] VITALS (12 sets, daily range): BP systolic 68–96; BP diastolic 43–65; PULSE 85–99; RESP 16–22; TEMP 36.5–37.2; O2SAT 98–100; BMI 21.2
--- NOTE | ~2023-11-27 | XR_ITS ---
Clinical Indication: Syncope AP and lateral views of the chest: Comparison: 05/16/2023 Findings: Suspected subtle hazy airspace opacity left midlung. Probable minimal left pleural effusion .. Cardiomediastinal silhouette is within normal limits. Bones and soft tissues are unremarkable. Impression: Suspected subtle hazy left midlung airspace opacity, which could reflect focal pneumonia. Minimal left pleural effusion. Reviewed, dictated and finalized at location . Impression: Suspected subtle hazy left midlung airspace opacity, which could reflect focal pneumonia. Minimal left pleural effusion.
--- NOTE | ~2023-11-27 | CT_ITS ---
Noncontrast CT scan of the cervical spine Technique: Multiple contiguous axial [address] images of the cervical spine were obtained and rec onstructed in 2D sagittal and coronal planes on the acquisition scanner. Dose reduction technique was used on this scan by utilizing automated exposure control, adjustment of the mA and/or kV according to patient size. The dose-length product (DLP) was 267.94 mGy-cm. Clinical History: Pain Findings: No fractures or dislocations. There is moderate degenerative disc narrowing at C5-C6, with mild degenerative change at the remainder of the cervical spine. There is extensive facet arthropath y, especially on the right side. There is right neural foraminal narrowing at C2-C3. There is right n eural foraminal narrowing at C3-C4. There is mild left neural foraminal narrowing at C5-C6. There is right neural foraminal narrowing at C6-7. No prevertebral soft tissue swelling. Impression: No fracture or subluxation of the cervical spine. Degenerative spondylosis, as above. Reviewed, dictated and finalized at location . Impression: No fracture or subluxation of the cervical spine. Degenerative spondylosis, as above.
--- NOTE | ~2023-11-27 | CT_ITS ---
EXAMINATION: CT brain wo con DATE: 11/27/2023 10:40 INDICATION: Fall with head injury TECHNIQUE: Computed tomography (CT) of the head was performed without intravenous contrast. Sagittal and coronal reconstructions were performed. The mA was adjusted according to patient size. Iterative reconstruction technique was employed. The dose-length product was 605.33 mGy-cm. COMPARISON: head CT dated 05/16/2023 FINDINGS: No fracture. No acute intracranial hemorrhage, acute infarction or abnormal extra axial fluid collect ion. There is mild scattered white matter hypoattenuation consistent with chronic small vessel ischem ic disease. Ventricles are normal and symmetric. No mass/mass effect. Changes of bilateral intraocul ar lens replacement. The paranasal sinuses are clear. Small right mastoid effusion. IMPRESSION: 1. Normal aging brain. No fracture or acute intracranial process. Reviewed, dictated and finalized at location A.
--- NOTE | 2023-11-27 10:03 | ECG_ITS ---
Test Date: 2023-11-27 10:06:07 Measurements Intervals [place] Rate: 94 P: -12 AK: 119 QRS: 33 QRSD: 105 T: 32 QT: 346 QTc: 434 Interpretive Statements SINUS RHYTHM WITH OCCASIONAL SUPRAVENTRICULAR PREMATURE COMPLEXES NONSPECIFIC ST & T-WAVE ABNORMALITY- DIFFUSE LEADS BASELINE ARTIFACT- I, III, AVR, AVL, V2 BORDERLINE ECG No previous ECG available for comparison Electronically Signed On 11-27-2023 11:05:32 CDT by Naman Sylvester D.O.
--- NOTE | 2023-11-27 10:36 | PC.NURSE ---
Family notified this RN that pt has an EF of 14%, notified MD.
[2023-11-27 11:21] LABS: Basophils Percent Auto 0.3 % (0.2-1.2); Hematocrit 26.2 % (42.0-52.0); Hemoglobin 8.1 g/dL (14.0-18.0); Immature Granulocyte Absolute 0.01 K/mm3 (0.00-0.031); Immature Granulocyte Percent A 0.3 % (0-0.5); Immature Platelet Fraction Pct 9.8 % (0.9-11.2); Lymphocytes Absolute Auto 0.19 K/mm3 (0.9-3.2); Lymphocytes Percent Auto 6.3 % (18.3-44.2); Mean Corpuscular HGB Conc 30.9 g/dl (32-36); Mean Corpuscular Hemoglobin 33.5 pg (26-34); Mean Corpuscular Volume 108.3 fl (80-100); Mean Platelet Volume 11.8 fl (7.4-10.4); Monocytes Absolute Auto 0.4 K/mm3 (0.1-0.6); Monocytes Percent Auto 13.3 % (2.6-8.5); Neutrophils Absolute Auto 2.4 K/mm3 (1.3-6.7); Neutrophils Percent Auto 78.8 % (45.5-73.1); Platelet Count Result 67 k/mm3 (150-375); Red Blood Count 2.42 M/mm3 (4.6-6.20); Red Cell Distribution Width 20.1 % (11.5-14.5)
[2023-11-27] MEDS: LACTATED RINGERS 1,000 ML 999 ML IV CONT ×2 (11:32→14:20)
[2023-11-27 11:34] LABS: Alanine Aminotransferase 13 U/L (6-50); Albumin Level 3.9 g/dL (3.5-5.1); Alkaline Phosphatase 126 U/L (38-126); Anion Gap 8 mmol/L (4-12); Aspartate Amino Transferase 31 U/L (17-59); Bilirubin,Total 0.9 mg/dL (0.2-1.3); Blood Urea Nitrogen 47 mg/dL (9-20); Carbon Dioxide 33 mmol/L (22-30); Chloride 93 mmol/L (98-107); Estimated CRCL calculation 45 ml/min; Estimated Glomerular Filt Rate 58; Glucose 150 mg/dL (65-110); Potassium 4.3 mmol/L (3.4-5.0); Sodium 134 mmol/L (137-145)
[2023-11-27 11:34] LABS: Lactic Acid Reflex 1.6 mmol/L (0.7-2.0)
[2023-11-27 11:44] LABS: Anisocytosis 2+; Hypochromasia 1+; Macrocytosis 1+ (NORMAL); Platelet Estimate Decreased (Adequate); Schistocytes None Seen
[2023-11-27] MEDS: AZITHROMYCIN 500 MG/NS 250 ML 500 MG/250 ML BAG 250 MG IVPB (12:24)
--- NOTE | 2023-11-27 13:51 | ED.FALL ---
HPI - Fall General Chief Complaint: Fall Stated Complaint: fall Time Seen by Provider: 11/27/23 10:09 History of Present Illness HPI Narrative: Patient has been having many falls at home; he feels unsteady on his feet and falls. He hasn't had an appetite for last 2 months. Related Data Home Medications Medication Instructions Recorded Confirmed [id number]-ej-rouhw 300 mcg-K 60 1 tablet PO DAILY 11/06/20 10/07/23 mcg-lycop 600 mcg-lutein 300 mcg tablet (Centrum Silver Men) mirtazapine 7.5 mg tablet 15 mg PO HS 03/28/23 10/07/23 aspirin 81 mg tablet,delayed 81 mg PO DAILY 06/23/23 10/07/23 release (Adult Low Dose Aspirin) folic acid 1 mg tablet 1 mg PO DAILY 06/23/23 10/07/23 acetaminophen 500 mg tablet 1,000 mg PO Q6H PRN 11/25/23 (Tylenol Extra Strength) spironolactone 25 mg tablet 25 mg PO DAILY 11/25/23 Allergies Allergy/AdvReac Type Severity Reaction Status Date / Time No Known Allergies Allergy Mild Verified 11/27/23 10:55 [facility] Past Medical History Medical History CAD (coronary artery disease) Chronic GERD Degenerative arthritis of knee, bilateral H/O acute myocardial infarction H/O myocardial infarction, greater than 8 weeks Hemoglobin A1c less than 7.0% 08/25/20 A1c = 6.9 Mixed hyperlipidemia 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, mediastinum, and left occipital lobe Type 2 diabetes mellitus without complication, without long-term current use of insulin Surgical History Surgical History History of incision and drainage drained sebaceous cyst 04/30/23 SAW Hx of excision of mass Excision of ruptured sebaceous back cyst with 4cm intermediate layered wound closure 06/23/23 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 Status post cataract extraction of both eyes with insertion of intraocular lens Family History Family History Mother Family history of diabetes mellitus in first degree relative Sibling Family history of diabetes mellitus in first degree relative Social History Social History (Reviewed 10/29/23 @ 07:18 by Sintia Torrez [facility]) Social History: The patient lives with his of 57 years. They raised 2 sons. 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 He quit smoking tobacco over 25 years ago. Prior to quitting he smoked up to 3 packs cigarettes per day. He drinks alcohol 2 to 3 times a week. Code status: Full code Surrogate decision maker: Smoking packs per day: 2 Smoking cigarettes per day: 40.0 Years smoked: 30 Smoking pack-years: 60.00 Smoking status: Former smoker Tobacco type: cigarettes Second hand tobacco smoke exposure: No Smoking end date: 03/24/81 Alcohol intake: current Drinks per week: 3 Substance use: former Substance use type: does not use Do You Feel Safe in your Home?: Yes Lack of Transportation: No Lack of Food: Never True Current Housing: I Have Housing Concerned About Future Housing: No Difficulty Paying Gas/Electric Bills: No Difficulty Paying for Meds: No Currently Unemployed: No Education: High School Diploma/GED Difficulty w/ Childcare or Family Care: No Living arrangements: with family Occupation/Education: retired Gender identity (if verbalized by the patient): Male Spiritual care concerns: No Exam Narrative: EXAMINATION OF ORGAN SYSTEMS/BODY AREAS: Constitutional: Vital signs per nursing GENERAL: Appears quite tired and thin HEAD: Normal with no signs of head trauma. EYES: EOMI, conjunctiva normal ENT: Hearing grossly intact LUNGS: Nonlabored breathing. HEART: [Regular rate and rhythm] ABD: [Soft], [nontender to palpation] EXT: Normal range of motion SKIN: [No rashes or lesions.] NEURO: [Alert and oriented x 3. No gross focal sensory or s
--- NOTE | 2023-11-27 14:55 | PC.NURSE ---
This patient, Lalito Guevara, was admitted to [facility] Surg Room 305-01 at 14:53. Patient/family oriented to hospital policies and general routines including ID bracelet, bed and alarms, visiting hours, pain management, procedures, bathroom and other care routines, personal items, smoking policy, room service/diet, and visiting hours. Information on how to activate the Rapid Response Team has been discussed. Patient/Family are encouraged to report perceived risks to care and to ask questions if they do not understand what they are told or what they should do.
--- NOTE | 2023-11-27 16:40 | PM.IMHP ---
H&P: HPI History of Present Illness Date/Time: 11/27/23 16:40 Chief Complaint: Multiple Falls Narrative: 78 y/o M presents here with multiple falls with PMH of lung cancer, CAD, GERD, NM, HLD, and type 2 diabetes. The patient presents here via EMS from home for further evaluation after multiple falls. Patient reports he has fallen 2 times in the last 24 hours. Most recent fall this morning while the patient was getting out of bed. Patient reports he sat on the edge of the bed for a minute prior to standing, has been previously educatd to changes positions slowly due to his pressure running lower over the past month. Upon standing patient fell to the floor but did not have head strike or loss of consciousness. Fall yesterday occurred while patient was standing at the toilet urinating. He reports he fell forward and hit his head against a picture in a glass frame. Did not lose consciousness after and denies headache, dizziness, or pain post-fall. Patient has been undergoing chemo for metastatic lung cancer with metastases to the abdomen, mediastinum, and left occipital lobe [facility]. Patient has been unable to receive treatment due to intolerance (weakness/poor PO intake/etc), last had chemotherapy 3 weeks ago. He reports poor appetite since chemo initiation. Denies fever, chills, body aches, nausea, vomiting, diarrhea, chest pain, or abdominal pain. Does report mild shortness of breath with exertion. No accompanying cough. Patient reports he had hx CHF that was recently diagnosed last month, believes his EF is around 15%. Initial VS at presentation: 97.7? F, HR 99, RR 18, 68/43, and 98% on RA. ED workup showed: WBC 3.0, hemoglobin 8.1 (previously 6.5 on 10/11/2023), platelet count 67, sodium 134, creatinine 1.2 and GFR 58, glucose 150, lactic 1.6, and initial troponin 0.020. Head CT showed normal aging brain without acute fracture or acute intracranial process. CXR showed suspected subtle hazy left midlung airspace opacity which could reflect focal pneumonia and minimal left pleural effusion. C-spine CT showed no acute findings. 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, mediastinum, and left occipital lobe Type 2 diabetes mellitus without complication, without long-term current use of insulin Surgical History Surgical History History of incision and drainage drained sebaceous cyst 04/30/23 SAW Hx of excision of mass Excision of ruptured sebaceous back cyst with 4cm intermediate layered wound closure 06/23/23 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 Status post cataract extraction of both eyes with insertion of intraocular lens Family History Family History Mother Family history of diabetes mellitus in first degree relative Sibling Family history of diabetes mellitus in first degree relative Social History Social History Social History: The patient lives with his of 57 years. They raised 2 sons. 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 He quit smoking tobacco over 25 years ago. Prior to quitting he smoked up to 3 packs cigarettes per day. He drinks alcohol 2 to 3 times a week. Code status: Full code Surrogate decision maker: Smoking packs per day: 2 Smoking cigarette
[2023-11-27 19:27] LABS: Troponin I 0.021 ng/mL (0.000-0.034)
[2023-11-27] MEDS: CEFEPIME 2 GM/NS 50 ML 2 GM/50 ML BAG IVPB (20:42)
[2023-11-27] MEDS: ROSUVASTATIN 5 MG TABLET PO (21:49)
[2023-11-27] MEDS: MIRTAZAPINE 15 MG TABLET PO (21:49)
[2023-11-27] MEDS: VANCOMYCIN 1,750 MG/NS 500 ML 1,750 MG/500 ML BAG 250 MG IVPB (21:58)
[2023-11-27] MEDS: SODIUM CHLORIDE 0.9% IV 1,000 ML 75 ML IV CONT (22:03)
[2023-11-28 00:36] LABS: MRSA (PCR) NOT DETECTED (NOT DETECTE)
[2023-11-28 05:35] VITALS: BP 88/48; PULSE 84; RESP 18; TEMP 37.1; O2SAT 100
--- NOTE | 2023-11-28 07:07 | PM.IMPN ---
Progress Note: A&P Assessment and Plan (1) Pneumonia: Qualifiers: Laterality: bilateral Lung location: lower lobe of lung Pneumonia type: due to unspecified organism Qualified Code(s): J18.9 - Pneumonia, unspecified organism Code(s): J18.9 - Pneumonia, unspecified organism Status: Acute Assessment and Plan: - suspect there may be some sepsis component, HR elevated with hypertension. No leukocytosis, however has undergone chemo. - Blood cultures: NGTD - Lactic 1.6. s/p LR bolus x2 in the ED - CXR: Suspected subtle hazy left midlung airspace opacity, which could reflect focal pneumonia. Minimal left pleural effusion. - complicating factors: Metastatic lung cancer - started on HAP given patient is immunocompromised and significantly hypotensive, started on cefepime and vancomycin, vanc dc on 11/27. - NS IV 75 ml/hr - MRSA PCR negative - no supplemental O2 requirement (2) Hypotension: Qualifiers: Hypotension type: unspecified hypotension type Qualified Code(s): I95.9 - Hypotension, unspecified Code(s): I95.9 - Hypotension, unspecified Status: Acute Assessment and Plan: - hypotension likely secondary to hypovolemia with possible sepsis component/chemotherapy side effect - fluid resuscitated, remains soft but map greater than 65 - started on midodrine 10 mg TID - trend hemodynamics and fluid balance, history of CHF with poor EF. Lasix continued, hold spironolactone and resume when appropriate. - discussed hypotension with patient, he elected to be DNR/DNI. Patient does not want a central line or pressors if warranted. - obtain orthostatic vital signs once BP improved while at rest (3) Frequent falls: Code(s): R29.6 - Repeated falls Status: Acute Assessment and Plan: - suspect this is due to orthostatic hypotension given significant hypotension upon arrival and continued soft pressures despite IV fluids - Head CT: Normal aging brain. No fracture or acute intracranial process. - C spine CT: No fracture subluxation of the C-spine. Degenerative spondylosis. - Chest XR: Suspected subtle hazy left midlung airspace opacity, which could reflect focal pneumonia. Minimal left pleural effusion. - continue IV fluids - PT/OT eval and treat once BP improved/stable (4) Pancytopenia due to chemotherapy: Code(s): D61.810 - Antineoplastic chemotherapy induced pancytopenia Status: Acute Assessment and Plan: -WBC 3.0, hemoglobin 8.1, platelet count 67 on admission -suspect pancytopenia due to chemotherapy, monitor (5) Type 2 diabetes mellitus without complication, without long-term current use of insulin: Code(s): E11.9 - Type 2 diabetes mellitus without complications Status: Acute Assessment and Plan: - hypoglycemia protocol - POC blood glucose ACHS - home medication: Continue Farxiga. Hold metformin. - correct regimen ordered - low dose TIDWM - A1C 6.4 presents on 10/11/2023 (6) Essential (primary) hypertension: Code(s): I10 - Essential (primary) hypertension Status: Acute Assessment and Plan: - chronic, significantly hypotensive upon arrival. BP remains soft. - hold home medications: Losartan. - monitor Plan Diet: Heart healthy GI Prophylaxis: Not currently indicated DVT Prophylaxis: SCDs Lines: Peripheral Code Status: DNR/DNI, no pressors or central lines Time Spent With Patient Time with patient: Greater than 35 minutes Subjective Date/time seen: 11/28/23 07:07 Interval history: 78 y/o M presents here with multiple falls with PMH of lung cancer on chemotherapy, CAD, GERD, MS, HLD, and type 2 diabetes. Patient is pleasant lying in bed. He has no complaints at this time, denying chest pain, shortness of breath, nausea/vomiting and changes in bowel/bladder. Patient was evaluated by cardiology today who states that he recommends hospice at this time given nesha
[2023-11-28 07:22] LABS: Estimated CRCL calculation 65 ml/min; Estimated Glomerular Filt Rate > 60
[2023-11-28 07:58] LABS: Basophils Percent Auto 0.4 % (0.2-1.2); Eosinophils Absolute Auto 0.1 K/mm3 (0-0.3); Eosinophils Percent Auto 2.1 % (0-4.4); Hematocrit 25.1 % (42.0-52.0); Hemoglobin 7.8 g/dL (14.0-18.0); Immature Granulocyte Absolute 0.01 K/mm3 (0.00-0.031); Immature Granulocyte Percent A 0.4 % (0-0.5); Immature Platelet Fraction Pct 10.8 % (0.9-11.2); Lymphocytes Absolute Auto 0.25 K/mm3 (0.9-3.2); Lymphocytes Percent Auto 10.3 % (18.3-44.2); Mean Corpuscular HGB Conc 31.1 g/dl (32-36); Mean Corpuscular Hemoglobin 33.3 pg (26-34); Mean Corpuscular Volume 107.3 fl (80-100); Mean Platelet Volume 12.6 fl (7.4-10.4); Monocytes Absolute Auto 0.2 K/mm3 (0.1-0.6); Monocytes Percent Auto 9.1 % (2.6-8.5); Neutrophils Absolute Auto 1.9 K/mm3 (1.3-6.7); Neutrophils Percent Auto 77.7 % (45.5-73.1); Platelet Count Result 63 k/mm3 (150-375); Red Blood Count 2.34 M/mm3 (4.6-6.20); White Blood Count 2.4 K/mm3 (4.5-10.0)
[2023-11-28 08:06] LABS: Alanine Aminotransferase 11 U/L (6-50); Albumin Level 3.3 g/dL (3.5-5.1); Alkaline Phosphatase 116 U/L (38-126); Anion Gap 8 mmol/L (4-12); Aspartate Amino Transferase 29 U/L (17-59); Bilirubin,Total 0.6 mg/dL (0.2-1.3); Blood Urea Nitrogen 41 mg/dL (9-20); Calcium 9.5 mg/dL (8.4-10.2); Carbon Dioxide 31 mmol/L (22-30); Chloride 95 mmol/L (98-107); Estimated CRCL calculation 65 ml/min; Estimated Glomerular Filt Rate > 60; Glucose 135 mg/dL (65-110); Potassium 3.8 mmol/L (3.4-5.0); Sodium 134 mmol/L (137-145)
[2023-11-28 08:11] LABS: Glucose Point of Care 150 mg/dl (65-105)
[2023-11-28 08:26] LABS: Anisocytosis 1+; Hyperchromasia 1+
[2023-11-28 08:27] LABS: Platelet Estimate Decreased (Adequate); Schistocytes None Seen
--- NOTE | 2023-11-28 08:56 | PM.CNCAR ---
Assessment and Plan Assessment and plan (1) Hypotension: Qualifiers: Hypotension type: unspecified hypotension type Qualified Code(s): I95.9 - Hypotension, unspecified Code(s): I95.9 - Hypotension, unspecified Status: Acute (2) Cardiomyopathy: Code(s): I42.9 - Cardiomyopathy, unspecified Status: Acute Plan This is a a terminally ill 78-year-old gentleman with stage IV lung cancer as well as a severe, profound dilated nonischemic cardiomyopathy. The patient is coming into the hospital because of falling which I believe is related to hypotension. He has hemodynamics that do not permit recess assuming any guideline directed medical therapy. The patient with this condition as well as his malignancy I believe is terminally ill and needs to to consider with his family end of life planning. Spoke to them about hospice services which I believe is very appropriate at this time. They are interested in a hospice consultation. Unfortunately there is nothing else to offer this gentleman regarding his cardio myopathy given his very low ejection fraction and very low blood pressure. Comfort measures are appropriate in my opinion Jann Cardenas MD [facility] History of Present Illness History of Present Illness Consult date/time: 11/28/23 08:56 Reason For Visit: Failure to Thrive/Dehydration/Low BP/Falls Narrative: This is a 78-year-old man who is known to me with a history of a nonischemic cardiomyopathy who is being seen at the request of the hospitalist because of weakness, falling and hypotension. The patient originally was found to have left ventricular systolic dysfunction when he was evaluated elsewhere, I believe in [place] in the last couple of years. He was started on standard medical therapy for his cardiomyopathy. He was referred to see me in follow-up after he returned back to this area. He did very well. Initially his echocardiogram demonstrated very nice improvement in his left ventricular systolic function and he was doing well. Unfortunately our earlier this year he was found to have a large lung mass and this was found to be non-small cell lung cancer. He does have metastatic stage IV lung cancer and is under the care of an oncologist at [facility]. He recently became much more frail and debilitated in this setting and became more and more hypotensive. Because of the hypotension his guideline directed medical therapy was reduced and ultimately withdrawn. I saw him in the office last I believe in May of this year and he was marginally hypotensive but was otherwise stable and not volume overloaded. He was just in the hospital at [facility] and discharged about a week ago because of symptoms of generally being weak and hypotensive. At [facility] his left ventricular ejection fraction was very low at 15% by echo. His oncologist's requested that I see him sometimes possible after the discharge. That appointment was scheduled for next week. He came to the hospital yesterday was admitted because of symptoms of generalized weakness and falling when he stands up. His systolic blood pressures in the 80s when he is supine he is not reporting any shortness of breath or edema. His chest x-ray shows a very tiny pleural effusion but no significant vascular congestion otherwise. Patient is losing weight has a poor appetite his family states all he has been eating is some a boost nutritional supplements several times per day. Review of Systems Constitutional: Constitutional: Reports fatigue and Reports lethargy Eyes: Eyes: Reports no additional eye complaints ENT: Reports system reviewed and no additional complaints, except as documented Cardiovascular: Cardiovascular: Reports no additional cardiovascular complaints Respiratory: Respiratory: Reports dyspnea on exertion Gastrointestinal: Gastrointestinal: Reports as per HPI Musculoskeletal: Musculoskeletal: Reports no additional musculoskeletal complaints I
[2023-11-28] MEDS: CEFEPIME 2 GM/NS 50 ML 2 GM/50 ML BAG IVPB ×2 (10:09→21:27)
[2023-11-28] MEDS: POTASSIUM CHLORIDE 20 MEQ ER TABLET PO (10:10)
[2023-11-28] MEDS: FERROUS SULFATE 325 MG TABLET DR PO ×2 (10:10→18:25)
[2023-11-28] MEDS: FOLIC ACID 1 MG TABLET PO (10:10)
[2023-11-28] MEDS: EMPAGLIFLOZIN 10 MG TABLET PO (10:10)
[2023-11-28] MEDS: PANTOPRAZOLE 40 MG TABLET PO (10:11)
[2023-11-28] MEDS: ASPIRIN 81 MG ENTERIC TABLET PO (10:11)
[2023-11-28] MEDS: FINASTERIDE 5 MG TABLET PO (10:11)
[2023-11-28] MEDS: OPTI-GEN TAB 1 TABLET PO (10:11)
[2023-11-28 10:16] VITALS: BP 90/60
[2023-11-28 11:32] LABS: Glucose Point of Care 198 mg/dl (65-105)
[2023-11-28 12:37] VITALS: BMI 21.2
--- NOTE | 2023-11-28 13:03 | P.CDI_ITS ---
CDI Query Clarification Request BMI: 21.2 Nutritional Diagnostic Statement: Please refer to the comprehensive nutrition assessment for further information. If you agree with diagnosis of Severe protein calorie malnutrition related to chronic metastatic lung cancer as evidenced by weight loss -13%/3 months, -22%/1 year; intakes ,75% needs >1 month; severe muscle wasting and fat loss. Please specify severity if known: * Mild * Moderate * Severe * Other/Unknown <Tatyana Vargas RN - Last Filed: 11/28/23 13:04> Clarified Diagnosis Clarified Diagnosis: severe <Sachi Yoder PA-C - Last Filed: 11/28/23 15:38>
[2023-11-28 14:00] VITALS: BP 93/59; PULSE 86; RESP 16; TEMP 37.7; O2SAT 100
[2023-11-28 15:45] VITALS: TEMP 37.7
[2023-11-28] MEDS: ACETAMINOPHEN 500 MG TABLET 1000 MG PO (15:45)
[2023-11-28 16:33] LABS: Glucose Point of Care 185 mg/dl (65-105)
[2023-11-28 16:45] VITALS: TEMP 36.8
[2023-11-28] MEDS: MIDODRINE HCL 10 MG TABLET PO (18:25)
[2023-11-28 19:55] LABS: Glucose Point of Care 145 mg/dl (65-105)
[2023-11-28 20:13] VITALS: BP 98/57; PULSE 81; RESP 16; TEMP 37.1; O2SAT 99
[2023-11-28] MEDS: ROSUVASTATIN 5 MG TABLET PO (21:26)
[2023-11-28] MEDS: TAMSULOSIN HCL 0.4 MG CAPSULE PO (21:26)
[2023-11-28] MEDS: MIRTAZAPINE 15 MG TABLET PO (21:26)
--- NOTE | 2023-11-29 15:28 | PM.TDS ---
Transfer Discharge Sum: Prov Provider Date of admission: 11/27/23 13:08 Primary care physician: Jordan Baugh APRN Admitting clinician: Britta Scott MD Consults: 11/27/23 Consult to Physician Routine Comment: Spoke to Sandra 9.6.24 @ 0838--ab/us Consulting Provider: Jann Cardenas Reason for consultation: h/o CHF with low EF Has provider been notified: Yes 11/28/23 Care Coordination Consult Routine Reason for Consult:: Hospice Referral Attending physician on discharge: Myron Avina Discharging clinician: Sachi Yoder Anticipated date of transfer: 11/28/23 Receiving physician/facility: [facility] with Dr. Bolivar accepting. DS: Admitting Diagnosis Discharge Date 11/28/23 Admitting Diagnosis Pneumonia Hypotension frequent falls pancytopenia due to chemotherapy type 2 diabetes mellitus essential hypertension DS: Discharge Diagnosis Discharge Diagnosis (1) Pneumonia: Qualifiers: Laterality: bilateral Lung location: lower lobe of lung Pneumonia type: due to unspecified organism Qualified Code(s): J18.9 - Pneumonia, unspecified organism Code(s): J18.9 - Pneumonia, unspecified organism Status: Acute (2) Hypotension: Qualifiers: Hypotension type: unspecified hypotension type Qualified Code(s): I95.9 - Hypotension, unspecified Code(s): I95.9 - Hypotension, unspecified Status: Acute (3) Frequent falls: Code(s): R29.6 - Repeated falls Status: Acute (4) Pancytopenia due to chemotherapy: Code(s): D61.810 - Antineoplastic chemotherapy induced pancytopenia Status: Acute (5) Type 2 diabetes mellitus without complication, without long-term current use of insulin: Code(s): E11.9 - Type 2 diabetes mellitus without complications Status: Acute (6) Essential (primary) hypertension: Code(s): I10 - Essential (primary) hypertension Status: Acute Transfer Discharge Sum: Med Medications Active and Home Medications: Home Medications [id number] 300 mcg-K 60 mcg-lycop 600 mcg-lutein 300 mcg tablet (Centrum Silver Men) 1 tablet PO DAILY 11/06/20 [History Confirmed 11/27/23] mirtazapine 7.5 mg tablet 15 mg PO HS 03/28/23 [History Confirmed 11/27/23] tamsulosin 0.4 mg capsule 0.4 mg PO QHS #90 caps 06/16/23 [Rx Confirmed 11/27/23] aspirin 81 mg tablet,delayed release (Adult Low Dose Aspirin) 81 mg PO DAILY 06/23/23 [History Confirmed 11/27/23] ferrous sulfate 325 mg (65 mg iron) tablet (FeroSul) 325 mg PO BID #180 tabs 06/23/23 [Rx Confirmed 11/27/23] folic acid 1 mg tablet 1 mg PO DAILY 06/23/23 [History Confirmed 11/27/23] blood-glucose meter ([employer] Verio Flex Meter) #1 ea 10/07/23 [Rx Confirmed 11/27/23] metformin 1,000 mg tablet 1,000 mg PO BIDWMEAL #180 tabs 11/17/23 [Rx Confirmed 11/27/23] acetaminophen 500 mg tablet (Tylenol Extra Strength) 1,000 mg PO Q6H PRN Pain, Mild 11/25/23 [History Confirmed 11/27/23] blood sugar diagnostic ([employer] Verio test strips) #100 ea 11/25/23 [Rx Confirmed 11/27/23] finasteride 5 mg tablet 5 mg PO DAILY #90 tabs 11/25/23 [Rx Confirmed 11/27/23] pantoprazole 40 mg tablet,delayed release See Rx Instructions .Route .COMPLEX #90 tabs 11/25/23 [Rx Confirmed 11/27/23] spironolactone 25 mg tablet 25 mg PO DAILY 11/25/23 [History Confirmed 11/27/23] dapagliflozin propanediol 10 mg tablet (Farxiga) 10 mg PO QAM 11/27/23 [History Confirmed 11/27/23] docusate sodium 100 mg capsule (Colace) 100 mg PO DAILY PRN Constipation 11/27/23 [History Confirmed 11/27/23] furosemide 40 mg tablet 40 mg PO BID 11/27/23 [History Confirmed 11/27/23] losartan 25 mg tablet 12.5 mg PO QAM 11/27/23 [History Confirmed 11/27/23] oxycodone 5 mg capsule 5 mg PO Q4-6H PRN Pain, Severe 11/27/23 [History Confirmed 11/27/23] potassium chloride 20 mEq tablet,extended release 20 meq PO DAILY 11/27/23 [History Confirmed 11/27/23] rosuvastatin 5 mg tablet 5 mg PO QPM 11/27/23 [History C
== END 2023-11-28 22:42 | disposition short-term general hospital (02) | DRG 312 ==
LOC: ANHED 10:30 → ANH3MEDSUR 14:17
PROVIDERS: Student in an Organized Health Care Education/Training Program; Admitting Provider Internal Medicine; Emergency Provider Emergency Medicine; PCP Nurse Practitioner; Visit Provider Student in an Organized Health Care Education/Training Program
DX: I95.1 Orthostatic hypotension (principal); J18.9 Pneumonia, unspecified organism; E43 Unspecified severe protein-calorie malnutrition; D61.810 Antineoplastic chemotherapy induced pancytopenia; I42.8 Other cardiomyopathies; C34.90 Malignant neoplasm of unspecified part of unspecified bronchus or lung; C78.1 Secondary malignant neoplasm of mediastinum; C79.89 Secondary malignant neoplasm of other specified sites; I95.2 Hypotension due to drugs; T45.1X5A Adverse effect of antineoplastic and immunosuppressive drugs, initial encounter; E86.0 Dehydration; R62.7 Adult failure to thrive; E86.1 Hypovolemia; R29.6 Repeated falls; E11.9 Type 2 diabetes mellitus without complications; I25.10 Atherosclerotic heart disease of native coronary artery without angina pectoris; K21.9 Gastro-esophageal reflux disease without esophagitis; M17.0 Bilateral primary osteoarthritis of knee; N40.0 Benign prostatic hyperplasia without lower urinary tract symptoms; I11.0 Hypertensive heart disease with heart failure; I50.9 Heart failure, unspecified; E78.2 Mixed hyperlipidemia; Z87.891 Personal history of nicotine dependence; Z96.1 Presence of intraocular lens; Z98.42 Cataract extraction status, left eye; Z98.41 Cataract extraction status, right eye; Z68.21 Body mass index [BMI] 21.0-21.9, adult; I25.2 Old myocardial infarction
CPT/HCPCS: 36415; 70450; 71046; 72125; 80053; 82565; 82948; 83605; 84484; 85025; 85055; 87040; 87641; 93005; 96365; 96375; 99285; A9270; J0456; J0692; J0696; J3370; J7030; J7120

== ENCOUNTER 2024-02-10 16:01 | Outpatient (CLI) | payer MEDICARE, SELFPAY ==
--- NOTE | ~2024-02-10 | XR_ITS ---
CHEST RADIOGRAPH, PA AND LATERAL CLINICAL HISTORY: SOB, HX OF LUNG CANCER . COMPARISON: 11/27/2023 TECHNIQUE: PA and lateral views of the chest. FINDINGS The cardiomediastinal silhouette is partially obscured. Blunting of the left costophrenic sulcus is present with hazy opacity of the left hemidiaphragm, find ings consistent with a moderate left-sided pleural effusion. The remainder of the lungs are clear. Visualized osseous structures and soft tissues are unremarkable. IMPRESSION: Moderate left-sided pleural effusion Reviewed, dictated and finalized at location A. PTION
== END 2024-02-10 16:02 | disposition home or self-care (01) ==
PROVIDERS: PCP Nurse Practitioner
DX: J90 Pleural effusion, not elsewhere classified (principal)
CPT/HCPCS: 71046

== ENCOUNTER 2024-04-21 10:00 | Outpatient (RCR) | payer MEDICARE, SELFPAY ==
[2024-02-10 15:26] VITALS: BP 100/60; PULSE 102; RESP 16; O2SAT 94
== END 2024-05-05 09:46 | disposition home or self-care (01) ==
LOC: ANHCPREHAB 10:00
PROVIDERS: PCP Nurse Practitioner
DX: I50.9 Heart failure, unspecified (principal)
CPT/HCPCS: 93798